=== PATIENT | female | born 1965 | race Caucasian/White ===

== ENCOUNTER 2019-02-09 02:33 | Inpatient (IN) | payer OTHER ==
[~2019-02-09] VITALS: Ht 170.2 cm; Wt 101.8 kg
[2019-02-09] VITALS (10 sets, daily range): BP systolic 115–134; BP diastolic 69–90
[2019-02-09 03:09] LABS: BASO # 0.1 x10^3/uL (0.0-0.2); BASO % 1 % (0-3); EOS # 0.1 x10^3/uL (0.0-0.7); EOS % 1 % (0-3); HEMATOCRIT 41.5 % (36.0-47.0); LYMPH # 2.6 x10^3/uL (1.0-4.8); LYMPH % 19 % (24-48); MEAN CORPUSCULAR HEMOGLOBIN 33 pg (25-35); MEAN CORPUSCULAR HGB CONC 34 g/dL (31-37); MEAN CORPUSCULAR VOLUME 97 fL (79-100); MONO # 0.9 x10^3/uL (0.0-1.1); MONO % 6 % (0-9); NEUT # 10.3 x10^3/uL (1.8-7.7); NEUT % 74 % (31-73); PLATELET COUNT 295 x10^3/uL (140-400); RED BLOOD COUNT 4.29 x10^6/uL (3.50-5.40); RED CELL DISTRIBUTION WIDTH 13.8 % (11.5-14.5)
[2019-02-09] MEDS ORDERED: KETOROLAC 15 MG/ML VIAL. IV ONE (03:15)
[2019-02-09] MEDS ORDERED: FAMOTIDINE 20 MG/2 ML VIAL IVP ONE (03:15)
[2019-02-09] MEDS ORDERED: IV NORMAL SALINE 1000ML BAG 1,000 ML IV ONE ×2 (03:15→04:15)
[2019-02-09] MEDS ORDERED: ONDANSETRON PF 4 MG/2 ML VIAL. IV ONE ×2 (03:15→04:15)
[2019-02-09 03:20] LABS: CALCIUM 9.2 mg/dL (8.5-10.1); CREATININE 0.9 mg/dL (0.6-1.0); GFR 65.8; POTASSIUM 4.1 mmol/L (3.5-5.1)
[2019-02-09 03:21] LABS: PROTHROMBIN TIME PATIENT 12.1 SEC (11.7-14.0)
[2019-02-09 03:26] LABS: ALBUMIN 3.7 g/dL (3.4-5.0); ALBUMIN/GLOBULIN RATIO 1.2 (1.0-1.7); MAGNESIUM 2.1 mg/dL (1.8-2.4); TOTAL BILIRUBIN 0.4 mg/dL (0.2-1.0); TOTAL PROTEIN 6.9 g/dL (6.4-8.2)
[2019-02-09] MEDS ORDERED: fentaNYL PF VIAL 100 MCG/2 ML VIAL IV ONE (03:30)
[2019-02-09 03:53] LABS: CREATINE KINASE 49 U/L (26-192)
--- NOTE | 2019-02-09 04:11 | PHYS DOC ---
Past Medical History Past Medical History: No Pertinent History Past Surgical History: , Hip Replacement, Hysterectomy Additional Past Surgical Histo: LEFT HIP, LAP BAND Additional Information: Nonsmoker Alcohol Use: Occasionally Drug Use: None Adult General Chief Complaint Chief Complaint: ABDOMINAL PAIN HPI HPI 53-year-old female presents with sudden right upper quadrant/epigastric pain with radiation to her shoulder and associated nausea and vomiting that started this evening. Patient reports she has been vomiting significantly since. Denies known sick contacts. Denies fever or chills. Patient denies trauma. Denies rash. Patient does have history of lap band was performed several years ago. Review of Systems Review of Systems Constitutional: Denies fever or chills Eyes: Denies redness or eye pain HENT: Denies nasal congestion or sore throat Respiratory: Denies cough or shortness of breath Cardiovascular: Denies chest pain or palpitations GI: Reports abdominal pain, nausea, and vomiting : Denies dysuria or hematuria Musculoskeletal: Reports right back pain and right shoulder pain Integument: Denies rash or skin lesions Neurologic: Denies headache, focal weakness or sensory changes Complete systems were reviewed and found to be within normal limits, except as documented in this note. Current Medications Current Medications Current Medications Medications (Trade) Dose Ordered Sig/Holly Start Time Stop Time Status Last Admin Dose Admin Famotidine (Pepcid Vial) 20 mg 1X ONCE 02/09/19 03:15 02/09/19 03:16 DC 02/09/19 03:12 20 MG Fentanyl Citrate (Fentanyl 2ml Vial) 50 mcg 1X ONCE 02/09/19 03:30 02/09/19 03:53 DC 02/09/19 03:32 50 MCG Ketorolac Tromethamine (Toradol 15mg Vial) 15 mg 1X ONCE 02/09/19 03:15 02/09/19 03:16 DC 02/09/19 03:12 15 MG Ondansetron HCl (Zofran) 4 mg 1X ONCE 02/09/19 03:15 02/09/19 03:16 DC 02/09/19 03:12 4 MG Sodium Chloride 1,000 ml @ 1,000 mls/hr 1X ONCE 02/09/19 03:15 02/09/19 04:14 DC 02/09/19 03:12 1,000 MLS/HR Allergies Allergies Allergies Coded Allergies Type Severity Reaction Last Updated Verified No Known Drug Allergies 02/09/19 No Physical Exam Physical Exam Constitutional: Well developed, well nourished, agitated due to pain, uncomfor table appearance HENT: Normocephalic, atraumatic, oropharynx moist Eyes: Conjunctiva normal, no discharge Neck: Normal range of motion, no tenderness, supple Cardiovascular: Heart rate normal, regular rhythm Lungs & Thorax: Bilateral breath sounds clear to auscultation, no wheezing Abdomen: Soft, right upper quadrant abdominal pain with palpation Skin: Warm, dry, no erythema, no rash Back: No tenderness, no CVA tenderness Extremities: No tenderness, ROM intact, no edema Neurologic: Alert and oriented X 3, normal motor function, normal sensory function, no focal deficits noted Psychologic: Affect agitated, judgement normal Current Patient Data Vital Signs Vital Signs Date Time Temp Pulse Resp B/P (MAP) Pulse Ox O2 Delivery O2 Flow Rate FiO2 02/09/19 03:32 22 99 Room Air 02/09/19 02:40 97.8 74 151/93 (112) 97.8 Lab Values Laboratory Tests Test 02/09/19 02:40 White Blood Count 14.0 x10^3/uL (4.0-11.0) H Red Blood Count 4.29 x10^6/uL (3.50-5.40) Hemoglobin 14.0 g/dL (12.0-15.5) Hematocrit 41.5 % (36.0-47.0) Mean Corpuscular Volume 97 fL (79-100) Mean Corpuscular Hemoglobin 33 pg (25-35) Mean Corpuscular Hemoglobin Concent 34 g/dL (31-37) Red Cell Distribution Width 13.8 % (11.5-14.5) Platelet Count 295 x10^3/uL (140-400) Neutrophils (%) (Auto) 74 % (31-73) H Lymphocytes (%) (Auto) 19 % (24-48) L Monocytes (%) (Auto) 6 % (0-9) Eosinophils (%) (Auto) 1 % (0-3) Basophils (%) (Auto) 1 % (0-3) Neutrophils # (Auto) 10.3 x10^3/uL (1.8-7.7) H Lymphocytes # (Auto) 2.6 x10^3/uL (1.0-4.8) Monocytes # (Auto) 0.9 x10^3/uL (0.0-1.1) Eosinophils # (Auto) 0.1 x10^3/uL (0.0-0.7) Basophils # (Auto) 0.1 x10^3/uL (0.0-0.2) Sodium Level 143 mmol/L (136-145) Potassium Level 4.1 mmol/L (3.5-5.1) Chloride Level 104 mmol/L (98-107) Carbon Dioxide Level 32 mmol/L (21-32) Anion Gap 7 (6-14) Blood Urea Nitrogen 12 mg/dL (7-20) Creatinine 0.9 mg/dL (0.6-1.0) Estimated GFR (Cockcroft-Gault) 65.8 BUN/Creatinine Ratio 13 (6-20) Glucose Level 119 mg/dL (70-99) H Lactic Acid Level 1.0 mmol/L (0.4-2.0) Calcium Level 9.2 mg/dL (8.5-10.1) Magnesium Level 2.1 mg/dL (1.8-2.4) Total Bilirubin 0.4 mg/dL (0.2-1.0) Aspartate Amino Transferase (AST) 17 U/L (15-37) Alanine Aminotransferase (ALT) 25 U/L (14-59) Alkaline Phosphatase 84 U/L (46-116) Creatine Kinase 49 U/L (26-192) Creatine Kinase MB (Mass) 0.5 ng/mL (0.0-3.6) Creatine Kinase MB Relative Index % (0-4) Troponin I Quantitative < 0.017 ng/mL (0.000-0.055) Total Protein 6.9 g/dL (6.4-8.2) Albumin 3.7 g/dL (3.4-5.0) Albumin/Globulin Ratio 1.2 (1.0-1.7) Lipase 89 U/L (73-393) Laboratory Tests 02/09/19 02:40 Laboratory Tests 02/09/19 02:40 EKG EKG @0317 NSR at 80bpm, NO ST elevation, wandering baseline noted, QRS 88ms, QT/QTc 404/470ms Radiology/Procedures Radiology/Procedures PROCEDURE: ABDOMEN LTD Abdominal ultrasound right upper quadrant: Reason for examination: Right upper quadrant pain. Evaluate for cholelithiasis. Pancreas is poorly visualized due to bowel gas. No abnormality seen at the inferior vena cava. The liver is enlarged at 19.5 cm and shows fatty infiltration without a focal lesion. Gallbladder shows cholelithiasis with positive Vance sign. Gallbladder appears enlarged at 11.3 cm. The gallbladder wall is thickened at 4.8 mm. Common bile duct is normal in caliber at 5.3 mm. Right kidney measures 10.8 x 5.1 x 4.7 cm in greatest dimension and shows normal cortical medullary differentiation with no mass or hydronephrosis. IMPRESSION: Enlarged liver with fatty infiltration. Enlarged gallbladder with cholelithiasis with positive Vance sign and gallbladder wall thickening consistent with cholecystitis. Electronically signed by: Nydia Palmer MD (02/09/2019 4:22 AM) [facility] Course & Med Decision Making Course & Med Decision Making Pertinent Labs and Imaging studies reviewed. (See chart for details) Patient presents with history of present illness and physical exam concerning for possible acute cholecystitis. Reports last PO 2129 last night. Patient was seen and tenderness to right upper quadrant. Pain/nausea addressed. IV fluid hydration given. Labs obtained and posted to chart. LFT/lipase within normal limits. WBC elevated. Lactic acid within normal limits. Ultrasound obtained with findings consistent for acute cholecystitis. Discussed case with Dr. Ricardo (Gen Surgery) who is in agreement with consultation and requests empiric antibiotics to be given. Zosyn initiated. Patient requiring admission for further evaluation and treatment. Discussed with Dr. Day (hospitalist) who is in agreement with admission. Discussed findings and plan with patient and family, who acknowledge understanding and agreement. Dragon Disclaimer Dragon Disclaimer This electronic medical record was generated, in whole or in part, using a voice recognition dictation system. Departure Departure Impression: Primary Impression: Cholecystitis Disposition: ADMITTED INPATIENT Admitting Physician: JANETTE (Shay) Condition: STABLE Referrals: NO PCP (PCP) GEORGE LOU DO Feb 09, 2019 04:11
[2019-02-09] MEDS ORDERED: MORPHINE SULFATE 10 MG/ML VIAL. IV ONE (04:15)
[2019-02-09] MEDS ORDERED: ONDANSETRON PF 4 MG/2 ML VIAL. IV PRN ×2 (04:15→08:30)
--- NOTE | 2019-02-09 04:25 | RAD ---
Abdominal ultrasound right upper quadrant: Reason for examination: Right upper quadrant pain. Evaluate for cholelithiasis. Pancreas is poorly visualized due to bowel gas. No abnormality seen at the inferior vena cava. The liver is enlarged at 19.5 cm and shows fatty infiltration without a focal lesion. Gallbladder shows cholelithiasis with positive Vacne sign. Gallbladder appears enlarged at 11.3 cm. The gallbladder wall is thickened at 4.8 mm. Common bile duct is normal in caliber at 5.3 mm. Right kidney measures 10.8 x 5.1 x 4.7 cm in greatest dimension and shows normal cortical medullary differentiation with no mass or hydronephrosis. IMPRESSION: Enlarged liver with fatty infiltration. Enlarged gallbladder with cholelithiasis with positive Vance sign and gallbladder wall thickening consistent with cholecystitis. Electronically signed by: Nydia Palmer MD (02/09/2019 4:22 AM) [facility]
[2019-02-09] MEDS ORDERED: PIPERACILLIN/TAZOBACTAM 3.375 GM in IV NORMAL SALINE 50ML 50 ML IV ONE ×2 (04:30→13:45)
[2019-02-09] MEDS: MORPHINE SULFATE 4 MG/ML VIAL. IV PRN ×3 (05:37→22:48)
--- NOTE | 2019-02-09 07:07 | EKG ---
[facility] [address] [place] [address] Test Date: 2019-02-09 Test Time: 03:17:53 Pat Name: BREANA BROWN Department: Room: 410 Gender: F [employer]: : 1965 Requested By: GEORGE LOU Order Number: [id number] Reading MD: Ishan Lara MD Measurements Intervals [place] Rate: 80 P: 20 WY: 170 QRS: 12 QRSD: 88 T: 38 QT: 404 QTc: 469 Interpretive Statements SINUS RHYTHM Electronically Signed On 02-09-2019 13:46:33 CDT by Ishan Lara MD
--- NOTE | 2019-02-09 08:07 | PDOC2 ---
CARLA BIRMINGHAM SERVICE PROVIDER 02/09/19 0807: CONSULT Date of Consult Date of Consult DATE: 02/09/19 TIME: 08:03 Reason for Consult Reason for Consult: cholecystitis Referring Physician Referring Physician: ER Identification/Chief Complaint Chief Complaint abdominal pain Source Source: Chart review, Patient History of Present Illness Reason for Visit: Acute onset upper abdominal pain with radiation to back. Associated nausea and emesis. Started after dinner last evening. No similar pain in past. Reports no diarrhea, some constipation(small stool yesterday). Pain medication alleviates pain somewhat. Past Medical History Past Medical History no pertinent hx Past Surgical History Past Surgical History: , Tubal Ligation, Hysterectomy, Other (lap band) Family History Family History: Other (noncontributory to current illness ) Social History No ALCOHOL: occassional Drugs: None Lives: Alone Current Medications Current Medications Current Medications Ondansetron HCl (Zofran) 4 mg 1X ONCE IV Last administered on 02/09/19at 03:12; Start 02/09/19 at 03:15; Stop 02/09/19 at 03:16; Status DC Famotidine (Pepcid Vial) 20 mg 1X ONCE IVP Last administered on 02/09/19at 03:12; Start 02/09/19 at 03:15; Stop 02/09/19 at 03:16; Status DC Ketorolac Tromethamine (Toradol 15mg Vial) 15 mg 1X ONCE IV Last administered on 02/09/19at 03:12; Start 02/09/19 at 03:15; Stop 02/09/19 at 03:16; Status DC Sodium Chloride 1,000 ml @ 1,000 mls/hr 1X ONCE IV Last administered on 02/09/19at 03:12; Start 02/09/19 at 03:15; Stop 02/09/19 at 04:14; Status DC Fentanyl Citrate (Fentanyl 2ml Vial) 50 mcg 1X ONCE IV Last administered on 02/09/19at 03:32; Start 02/09/19 at 03:30; Stop 02/09/19 at 03:53; Status DC Morphine Sulfate (Morphine Sulfate) 5 mg 1X ONCE IV Last administered on 02/09/19at 04:20; Start 02/09/19 at 04:15; Stop 02/09/19 at 04:16; Status DC Ondansetron HCl (Zofran) 4 mg 1X ONCE IV Last administered on 02/09/19at 04:20; Start 02/09/19 at 04:15; Stop 02/09/19 at 04:16; Status DC Ondansetron HCl (Zofran) 4 mg PRN Q8HRS PRN IV NAUSEA/VOMITING; Start 02/09/19 at 04:15; Stop 02/10/19 at 04:14 Morphine Sulfate (Morphine Sulfate) 4 mg PRN Q4HRS PRN IV PAIN Last administered on 02/09/19at 05:37; Start 02/09/19 at 04:15 Sodium Chloride 1,000 ml @ 125 mls/hr 1X ONCE IV Last administered on 02/09/19at 05:37; Start 02/09/19 at 04:15; Stop 02/09/19 at 12:14 Piperacillin Sod/ Tazobactam Sod 3.375 gm/Sodium Chloride 50 ml @ 100 mls/hr 1X ONCE IV Last administered on 02/09/19at 05:37; Start 02/09/19 at 04:30; Stop 02/09/19 at 04:59; Status DC Allergies Allergies: Coded Allergies: No Known Drug Allergies (Unverified , 02/09/19) ROS General: YES: Chills, Other (+ subjective fevers ) PSYCHOLOGICAL ROS: No: Anxiety, Depression Eyes: No Blurry vision, No Double vision HEENT: No: Heacaches, Sore Throat Hematological and Lymphatic: No: Bleeding Problems, Blood Clots Respiratory: YES: Shortness of breath; No: Cough Cardiovascular: yes Chest Pain; No Palpitations Gastrointestinal: Yes Other (see hpi) Genitourinary: No Dysuria, No Hematuria Musculoskeletal: No Joint Pain, No Muscle Pain Neurological: No Confusion, No Impaired Coord/balance Skin: No Pruritus, No Rash Physical Exam General: Alert, Oriented X3, Cooperative, No acute distress HEENT: PERRLA, Mucous membr. moist/pink Lungs: Clear to auscultation, Normal air movement Heart: Regular rate, Normal S1, Normal S2, No murmurs Abdomen: Soft, Other (ND, TTP across upper abdomen ) Extremities: No clubbing, No cyanosis Skin: No rashes, No breakdown Neuro: Normal gait, Normal speech Psych/Mental Status: Mental status NL, Mood NL MUSCULOSKELETAL: No deformity, No swelling Vitals VITALS Vital Signs Date Time Temp Pulse Resp B/P (MAP) Pulse Ox O2 Delivery O2 Flow Rate FiO2 02/09/19 06:19 Room Air 02/09/19 05:37 18 02/09/19 05:15 97.0 87 125/88 (100) 92 97.0 Labs Labs Laboratory Tests Test 02/09/19 02:40 White Blood Count 14.0 x10^3/uL (4.0-11.0) Red Blood Count 4.29 x10^6/uL (3.50-5.40) Hemoglobin 14.0 g/dL (12.0-15.5) Hematocrit 41.5 % (36.0-47.0) Mean Corpuscular Volume 97 fL (79-100) Mean Corpuscular Hemoglobin 33 pg (25-35) Mean Corpuscular Hemoglobin Concent 34 g/dL (31-37) Red Cell Distribution Width 13.8 % (11.5-14.5) Platelet Count 295 x10^3/uL (140-400) Neutrophils (%) (Auto) 74 % (31-73) Lymphocytes (%) (Auto) 19 % (24-48) Monocytes (%) (Auto) 6 % (0-9) Eosinophils (%) (Auto) 1 % (0-3) Basophils (%) (Auto) 1 % (0-3) Neutrophils # (Auto) 10.3 x10^3/uL (1.8-7.7) Lymphocytes # (Auto) 2.6 x10^3/uL (1.0-4.8) Monocytes # (Auto) 0.9 x10^3/uL (0.0-1.1) Eosinophils # (Auto) 0.1 x10^3/uL (0.0-0.7) Basophils # (Auto) 0.1 x10^3/uL (0.0-0.2) Prothrombin Time 12.1 SEC (11.7-14.0) Prothromb Time International Ratio 0.9 (0.8-1.1) Activated Partial Thromboplast Time 30 SEC (24-38) Sodium Level 143 mmol/L (136-145) Potassium Level 4.1 mmol/L (3.5-5.1) Chloride Level 104 mmol/L (98-107) Carbon Dioxide Level 32 mmol/L (21-32) Anion Gap 7 (6-14) Blood Urea Nitrogen 12 mg/dL (7-20) Creatinine 0.9 mg/dL (0.6-1.0) Estimated GFR (Cockcroft-Gault) 65.8 BUN/Creatinine Ratio 13 (6-20) Glucose Level 119 mg/dL (70-99) Lactic Acid Level 1.0 mmol/L (0.4-2.0) Calcium Level 9.2 mg/dL (8.5-10.1) Magnesium Level 2.1 mg/dL (1.8-2.4) Total Bilirubin 0.4 mg/dL (0.2-1.0) Aspartate Amino Transf (AST/SGOT) 17 U/L (15-37) Alanine Aminotransferase (ALT/SGPT) 25 U/L (14-59) Alkaline Phosphatase 84 U/L (46-116) Creatine Kinase 49 U/L (26-192) Creatine Kinase MB (Mass) 0.5 ng/mL (0.0-3.6) Creatine Kinase MB Relative Index % (0-4) Troponin I Quantitative < 0.017 ng/mL (0.000-0.055) Total Protein 6.9 g/dL (6.4-8.2) Albumin 3.7 g/dL (3.4-5.0) Albumin/Globulin Ratio 1.2 (1.0-1.7) Lipase 89 U/L (73-393) Laboratory Tests Test 02/09/19 02:40 White Blood Count 14.0 x10^3/uL (4.0-11.0) Red Blood Count 4.29 x10^6/uL (3.50-5.40) Hemoglobin 14.0 g/dL (12.0-15.5) Hematocrit 41.5 % (36.0-47.0) Mean Corpuscular Volume 97 fL (79-100) Mean Corpuscular Hemoglobin 33 pg (25-35) Mean Corpuscular Hemoglobin Concent 34 g/dL (31-37) Red Cell Distribution Width 13.8 % (11.5-14.5) Platelet Count 295 x10^3/uL (140-400) Neutrophils (%) (Auto) 74 % (31-73) Lymphocytes (%) (Auto) 19 % (24-48) Monocytes (%) (Auto) 6 % (0-9) Eosinophils (%) (Auto) 1 % (0-3) Basophils (%) (Auto) 1 % (0-3) Neutrophils # (Auto) 10.3 x10^3/uL (1.8-7.7) Lymphocytes # (Auto) 2.6 x10^3/uL (1.0-4.8) Monocytes # (Auto) 0.9 x10^3/uL (0.0-1.1) Eosinophils # (Auto) 0.1 x10^3/uL (0.0-0.7) Basophils # (Auto) 0.1 x10^3/uL (0.0-0.2) Prothrombin Time 12.1 SEC (11.7-14.0) Prothromb Time International Ratio 0.9 (0.8-1.1) Activated Partial Thromboplast Time 30 SEC (24-38) Sodium Level 143 mmol/L (136-145) Potassium Level 4.1 mmol/L (3.5-5.1) Chloride Level 104 mmol/L (98-107) Carbon Dioxide Level 32 mmol/L (21-32) Anion Gap 7 (6-14) Blood Urea Nitrogen 12 mg/dL (7-20) Creatinine 0.9 mg/dL (0.6-1.0) Estimated GFR (Cockcroft-Gault) 65.8 BUN/Creatinine Ratio 13 (6-20) Glucose Level 119 mg/dL (70-99) Lactic Acid Level 1.0 mmol/L (0.4-2.0) Calcium Level 9.2 mg/dL (8.5-10.1) Magnesium Level 2.1 mg/dL (1.8-2.4) Total Bilirubin 0.4 mg/dL (0.2-1.0) Aspartate Amino Transf (AST/SGOT) 17 U/L (15-37) Alanine Aminotransferase (ALT/SGPT) 25 U/L (14-59) Alkaline Phosphatase 84 U/L (46-116) Creatine Kinase 49 U/L (26-192) Creatine Kinase MB (Mass) 0.5 ng/mL (0.0-3.6) Creatine Kinase MB Relative Index % (0-4) Troponin I Quantitative < 0.017 ng/mL (0.000-0.055) Total Protein 6.9 g/dL (6.4-8.2) Albumin 3.7 g/dL (3.4-5.0) Albumin/Globulin Ratio 1.2 (1.0-1.7) Lipase 89 U/L (73-393) Assessment/Plan Assessment/Plan cholecystitis obesity plan for OR today d/w pt BELINDA MONZON MD 02/09/19 1337: CONSULT Assessment/Plan Assessment/Plan Pt seen and examined by myself; 53 year old female developed RUQ pain starting yesterday, rad to the back, persistent and severe. PMH/PSH/ROS/SH as above; exam: alert, oriented, no neck masses, no scleral icterus, lungs clear, heart RR and R, abdomen obese, tender with palpation in RUQ, lap band port present, ext neg for edema; Xrays and labs reviewed; A/P) Acute cholecystitis, recommend lap jack. The details and risks of surgery were discussed with the patient. She understands and would like to proceed. CARLA BIRMINGHAM APRN Feb 09, 2019 08:07 BELINDA MONZON MD Feb 09, 2019 13:37
[2019-02-09] MEDS ORDERED: IV RINGERS,LACTATED 1000ML 1,000 ML IV SCH (08:29)
[2019-02-09] MEDS ORDERED: HYDROmorphone 2 MG/ML VIAL IV PRN (08:30)
[2019-02-09] MEDS ORDERED: PROCHLORPERAZINE 10 MG/2 ML VIAL. IV PRN (08:30)
[2019-02-09] MEDS ORDERED: fentaNYL PF VIAL 100 MCG/2 ML VIAL IV PRN (08:30)
[2019-02-09] MEDS ORDERED: MORPHINE SULFATE 2 MG/ML VIAL. IV PRN (08:30)
[2019-02-09] MEDS ORDERED: DEXAMETHASONE SOD PHOS 4 MG/ML VIAL ONE (09:18)
[2019-02-09] MEDS ORDERED: ONDANSETRON PF 4 MG/2 ML VIAL. ONE (09:18)
[2019-02-09] MEDS ORDERED: fentaNYL PF VIAL 100 MCG/2 ML VIAL ONE (09:18)
[2019-02-09] MEDS ORDERED: PROPOFOL 20 ML IV ONE (09:18)
[2019-02-09] MEDS ORDERED: MIDAZOLAM HCL/PF 2 MG/2 ML VIAL. ONE (09:18)
[2019-02-09] MEDS ORDERED: ROCURONIUM 50 MG/5 ML VIAL. ONE (09:18)
[2019-02-09] MEDS ORDERED: LIDOCAINE 2% PF 5 ML VIAL. ONE (09:18)
--- NOTE | 2019-02-09 10:50 | NUR ---
SS following for discharge planning. SS reviewed pt chart. Pt is from home and is currently on room air. No discharge needs noted at this time. SS will continue to follow for discharge planning.
--- NOTE | 2019-02-09 11:06 | PDOC1 ---
History and Physical Date of Admission Date of Admission DATE: 02/09/19 TIME: 11:06 Identification/Chief Complaint Chief Complaint seen in er , 53-year-old female presents with sudden right upper quadrant/epigastric pain with radiation to her shoulder and associated nausea and vomiting that started this evening. Patient reports she has been vomiting significantly since. Denies known sick contacts. Denies fever or chills. Patient denies trauma. Denies rash. Patient does have history of lap band was performed several years ago. Past Medical History Past Medical History Past Medical History Past Medical History: No Pertinent History Past Surgical History: , Hip Replacement, Hysterectomy Additional Past Surgical Histo: LEFT HIP, LAP BAND Additional Information: Nonsmoker Alcohol Use: Occasionally Drug Use: None family hx obesity Past Surgical History Past Surgical History: , Tubal Ligation, Hysterectomy, Other (lap band) Family History Family History: High Cholestrol, Other (noncontributory to current illness ) Social History Smoke: No ALCOHOL: none Drugs: None Current Medications Current Medications Current Medications Ondansetron HCl (Zofran) 4 mg 1X ONCE IV Last administered on 02/09/19at 03:12; Start 02/09/19 at 03:15; Stop 02/09/19 at 03:16; Status DC Famotidine (Pepcid Vial) 20 mg 1X ONCE IVP Last administered on 02/09/19at 03:12; Start 02/09/19 at 03:15; Stop 02/09/19 at 03:16; Status DC Ketorolac Tromethamine (Toradol 15mg Vial) 15 mg 1X ONCE IV Last administered on 02/09/19at 03:12; Start 02/09/19 at 03:15; Stop 02/09/19 at 03:16; Status DC Sodium Chloride 1,000 ml @ 1,000 mls/hr 1X ONCE IV Last administered on 02/09/19at 03:12; Start 02/09/19 at 03:15; Stop 02/09/19 at 04:14; Status DC Fentanyl Citrate (Fentanyl 2ml Vial) 50 mcg 1X ONCE IV Last administered on 02/09/19at 03:32; Start 02/09/19 at 03:30; Stop 02/09/19 at 03:53; Status DC Morphine Sulfate (Morphine Sulfate) 5 mg 1X ONCE IV Last administered on at 04:20; Start 02/09/19 at 04:15; Stop 02/09/19 at 04:16; Status DC Ondansetron HCl (Zofran) 4 mg 1X ONCE IV Last administered on 02/09/19at 04:20; Start 02/09/19 at 04:15; Stop 02/09/19 at 04:16; Status DC Ondansetron HCl (Zofran) 4 mg PRN Q8HRS PRN IV NAUSEA/VOMITING; Start 02/09/19 at 04:15; Stop 02/10/19 at 04:14 Morphine Sulfate (Morphine Sulfate) 4 mg PRN Q4HRS PRN IV PAIN Last administered on 02/09/19at 05:37; Start 02/09/19 at 04:15 Sodium Chloride 1,000 ml @ 125 mls/hr 1X ONCE IV Last administered on 02/09/19at 05:37; Start 02/09/19 at 04:15; Stop 02/09/19 at 12:14 Piperacillin Sod/ Tazobactam Sod 3.375 gm/Sodium Chloride 50 ml @ 100 mls/hr 1X ONCE IV Last administered on 02/09/19at 05:37; Start 02/09/19 at 04:30; Stop 02/09/19 at 04:59; Status DC Ondansetron HCl (Zofran) 4 mg PRN Q6HRS PRN IV NAUSEA/VOMITING; Start 02/09/19 at 08:30; Stop 02/10/19 at 08:29 Fentanyl Citrate (Fentanyl 2ml Vial) 25 mcg PRN Q5MIN PRN IV MILD PAIN 1-3; Start 02/09/19 at 08:30; Stop 02/10/19 at 08:29 Fentanyl Citrate (Fentanyl 2ml Vial) 50 mcg PRN Q5MIN PRN IV MODERATE TO SEVERE PAIN; Start 02/09/19 at 08:30; Stop 02/10/19 at 08:29 Morphine Sulfate (Morphine Sulfate) 1 mg PRN Q10MIN PRN IV SEVERE PAIN 7-10; Start 02/09/19 at 08:30; Stop 02/10/19 at 08:29 Ringer's Solution 1,000 ml @ 30 mls/hr Q24H IV ; Start 02/09/19 at 08:29; Stop 02/09/19 at 20:28 Hydromorphone HCl (Dilaudid) 0.5 mg PRN Q10MIN PRN IV SEV PAIN, Second choice; Start 02/09/19 at 08:30; Stop 02/10/19 at 08:29 Prochlorperazine Edisylate (Compazine) 5 mg PACU PRN PRN IV NAUSEA, MRX1; Start 02/09/19 at 08:30; Stop 02/10/19 at 08:29 Ondansetron HCl (Zofran) 4 mg STK-MED ONCE .ROUTE ; Start 02/09/19 at 09:18; Stop 02/09/19 at 09:18; Status DC Propofol 20 ml @ As Directed STK-MED ONCE IV ; Start 02/09/19 at 09:18; Stop 02/09/19 at 09:18; Status DC Lidocaine HCl (Lidocaine Pf 2% Vial) 5 ml STK-MED ONCE .ROUTE ; Start 02/09/19 at 09:18; Stop 02/09/19 at 09:18; Status DC Dexamethasone Sodium Phosphate (Decadron) 4 mg STK-MED ONCE .ROUTE ; Start 02/09/19 at 09:18; Stop 02/09/19 at 09:18; Status DC Midazolam HCl (Versed) 2 mg STK-MED ONCE .ROUTE ; Start 02/09/19 at 09:18; Stop 02/09/19 at 09:18; Status DC Fentanyl Citrate (Fentanyl 2ml Vial) 100 mcg STK-MED ONCE .ROUTE ; Start 02/09/19 at 09:18; Stop 02/09/19 at 09:18; Status DC Rocuronium [place] (Zemuron) 50 mg STK-MED ONCE .ROUTE ; Start 02/09/19 at 09:18; Stop 02/09/19 at 09:18; Status DC Allergies Allergies: Coded Allergies: No Known Drug Allergies (Unverified , 02/09/19) ROS Review of System Review of Systems Review of Systems Constitutional: Denies fever or chills Eyes: Denies redness or eye pain HENT: Denies nasal congestion or sore throat Respiratory: Denies cough or shortness of breath Cardiovascular: Denies chest pain or palpitations GI: Reports abdominal pain, nausea, and vomiting : Denies dysuria or hematuria Musculoskeletal: Reports right back pain and right shoulder pain Integument: Denies rash or skin lesions Neurologic: Denies headache, focal weakness or sensory changes 14 pt systems were reviewed and found to be within normal limits, except as documented Physical Exam Physical Exam Physical Exam Physical Exam Constitutional: Well developed, well nourished, agitated due to pain, uncomf ortable appearance HENT: Normocephalic, atraumatic, oropharynx moist Eyes: Conjunctiva normal, no discharge Neck: Normal range of motion, no tenderness, supple Cardiovascular: Heart rate normal, regular rhythm Lungs & Thorax: Bilateral breath sounds clear to auscultation, no wheezing Abdomen: Soft, right upper quadrant abdominal pain with palpation Skin: Warm, dry, no erythema, no rash Back: No tenderness, no CVA tenderness Extremities: No tenderness, ROM intact, no edema Neurologic: Alert and oriented X 3, normal motor function, normal sensory function, no focal deficits noted Psychologic: Affect agitated, judgement normal Breasts: Not examined Rectal Exam: not examined Extremities: No edema Neuro: Normal speech, Sensation intact, Cranial nerves 3-12 NL Psych/Mental Status: Mental status NL Vitals Vitals Vital Signs Date Time Temp Pulse Resp B/P (MAP) Pulse Ox O2 Delivery O2 Flow Rate FiO2 02/09/19 09:34 97.4 73 20 127/70 97 Room Air 97.4 Labs Labs Laboratory Tests Test 02/09/19 02:40 White Blood Count 14.0 x10^3/uL (4.0-11.0) Red Blood Count 4.29 x10^6/uL (3.50-5.40) Hemoglobin 14.0 g/dL (12.0-15.5) Hematocrit 41.5 % (36.0-47.0) Mean Corpuscular Volume 97 fL (79-100) Mean Corpuscular Hemoglobin 33 pg (25-35) Mean Corpuscular Hemoglobin Concent 34 g/dL (31-37) Red Cell Distribution Width 13.8 % (11.5-14.5) Platelet Count 295 x10^3/uL (140-400) Neutrophils (%) (Auto) 74 % (31-73) Lymphocytes (%) (Auto) 19 % (24-48) Monocytes (%) (Auto) 6 % (0-9) Eosinophils (%) (Auto) 1 % (0-3) Basophils (%) (Auto) 1 % (0-3) Neutrophils # (Auto) 10.3 x10^3/uL (1.8-7.7) Lymphocytes # (Auto) 2.6 x10^3/uL (1.0-4.8) Monocytes # (Auto) 0.9 x10^3/uL (0.0-1.1) Eosinophils # (Auto) 0.1 x10^3/uL (0.0-0.7) Basophils # (Auto) 0.1 x10^3/uL (0.0-0.2) Prothrombin Time 12.1 SEC (11.7-14.0) Prothromb Time International Ratio 0.9 (0.8-1.1) Activated Partial Thromboplast Time 30 SEC (24-38) Sodium Level 143 mmol/L (136-145) Potassium Level 4.1 mmol/L (3.5-5.1) Chloride Level 104 mmol/L (98-107) Carbon Dioxide Level 32 mmol/L (21-32) Anion Gap 7 (6-14) Blood Urea Nitrogen 12 mg/dL (7-20) Creatinine 0.9 mg/dL (0.6-1.0) Estimated GFR (Cockcroft-Gault) 65.8 BUN/Creatinine Ratio 13 (6-20) Glucose Level 119 mg/dL (70-99) Lactic Acid Level 1.0 mmol/L (0.4-2.0) Calcium Level 9.2 mg/dL (8.5-10.1) Magnesium Level 2.1 mg/dL (1.8-2.4) Total Bilirubin 0.4 mg/dL (0.2-1.0) Aspartate Amino Transf (AST/SGOT) 17 U/L (15-37) Alanine Aminotransferase (ALT/SGPT) 25 U/L (14-59) Alkaline Phosphatase 84 U/L (46-116) Creatine Kinase 49 U/L (26-192) Creatine Kinase MB (Mass) 0.5 ng/mL (0.0-3.6) Creatine Kinase MB Relative Index % (0-4) Troponin I Quantitative < 0.017 ng/mL (0.000-0.055) Total Protein 6.9 g/dL (6.4-8.2) Albumin 3.7 g/dL (3.4-5.0) Albumin/Globulin Ratio 1.2 (1.0-1.7) Lipase 89 U/L (73-393) Laboratory Tests Test 02/09/19 02:40 White Blood Count 14.0 x10^3/uL (4.0-11.0) Red Blood Count 4.29 x10^6/uL (3.50-5.40) Hemoglobin 14.0 g/dL (12.0-15.5) Hematocrit 41.5 % (36.0-47.0) Mean Corpuscular Volume 97 fL (79-100) Mean Corpuscular Hemoglobin 33 pg (25-35) Mean Corpuscular Hemoglobin Concent 34 g/dL (31-37) Red Cell Distribution Width 13.8 % (11.5-14.5) Platelet Count 295 x10^3/uL (140-400) Neutrophils (%) (Auto) 74 % (31-73) Lymphocytes (%) (Auto) 19 % (24-48) Monocytes (%) (Auto) 6 % (0-9) Eosinophils (%) (Auto) 1 % (0-3) Basophils (%) (Auto) 1 % (0-3) Neutrophils # (Auto) 10.3 x10^3/uL (1.8-7.7) Lymphocytes # (Auto) 2.6 x10^3/uL (1.0-4.8) Monocytes # (Auto) 0.9 x10^3/uL (0.0-1.1) Eosinophils # (Auto) 0.1 x10^3/uL (0.0-0.7) Basophils # (Auto) 0.1 x10^3/uL (0.0-0.2) Prothrombin Time 12.1 SEC (11.7-14.0) Prothromb Time International Ratio 0.9 (0.8-1.1) Activated Partial Thromboplast Time 30 SEC (24-38) Sodium Level 143 mmol/L (136-145) Potassium Level 4.1 mmol/L (3.5-5.1) Chloride Level 104 mmol/L (98-107) Carbon Dioxide Level 32 mmol/L (21-32) Anion Gap 7 (6-14) Blood Urea Nitrogen 12 mg/dL (7-20) Creatinine 0.9 mg/dL (0.6-1.0) Estimated GFR (Cockcroft-Gault) 65.8 BUN/Creatinine Ratio 13 (6-20) Glucose Level 119 mg/dL (70-99) Lactic Acid Level 1.0 mmol/L (0.4-2.0) Calcium Level 9.2 mg/dL (8.5-10.1) Magnesium Level 2.1 mg/dL (1.8-2.4) Total Bilirubin 0.4 mg/dL (0.2-1.0) Aspartate Amino Transf (AST/SGOT) 17 U/L (15-37) Alanine Aminotransferase (ALT/SGPT) 25 U/L (14-59) Alkaline Phosphatase 84 U/L (46-116) Creatine Kinase 49 U/L (26-192) Creatine Kinase MB (Mass) 0.5 ng/mL (0.0-3.6) Creatine Kinase MB Relative Index % (0-4) Troponin I Quantitative < 0.017 ng/mL (0.000-0.055) Total Protein 6.9 g/dL (6.4-8.2) Albumin 3.7 g/dL (3.4-5.0) Albumin/Globulin Ratio 1.2 (1.0-1.7) Lipase 89 U/L (73-393) Images Images Signed PATIENT: BREANA BROWN ACCOUNT: [id number] : 1965 LOCATION: ER AGE: 53 SEX: F EXAM STATUS: REG ER ORD. PHYSICIAN: GEORGE LOU DO REASON: RUQ pain eval for cholelithiasis PROCEDURE: ABDOMEN LTD Abdominal ultrasound right upper quadrant: Reason for examination: Right upper quadrant pain. Evaluate for cholelithiasis. Pancreas is poorly visualized due to bowel gas. No abnormality seen at the inferior vena cava. The liver is enlarged at 19.5 cm and shows fatty infiltration without a focal lesion. Gallbladder shows cholelithiasis with positive Vance sign. Gallbladder appears enlarged at 11.3 cm. The gallbladder wall is thickened at 4.8 mm. Common bile duct is normal in caliber at 5.3 mm. Right kidney measures 10.8 x 5.1 x 4.7 cm in greatest dimension and shows normal cortical medullary differentiation with no mass or hydronephrosis. IMPRESSION: Enlarged liver with fatty infiltration. Enlarged gallbladder with cholelithiasis with positive Vance sign and gallbladder wall thickening consistent with cholecystitis. Electronically signed by: Nydia Palmer MD (02/09/2019 4:22 AM) [facility] VTE Prophylaxis Ordered VTE Prophylaxis Devices: Yes VTE Pharmacological Prophylaxi: Yes Assessment/Plan Assessment/Plan IMPRESSION: Enlarged liver with fatty infiltration. Enlarged gallbladder with cholelithiasis with positive Vance sign and gallbladder wall thickening consistent with acute cholecystitis. morbid obesity plan admit surgery consult npo iv fluid support iv protonix dvt prophylaxis 58 min pt exam, chart review, > 50% of time spent with exam, chart review, pt care coordination KATELYN CODY MD Feb 09, 2019 11:06
[2019-02-09] MEDS ORDERED: SURGICEL HEMOSTAT 4X8 EACH. ONE (13:05)
[2019-02-09] MEDS ORDERED: IOHEXOL 300 MG/ML 50 ML VIAL. ONE (13:05)
[2019-02-09] MEDS ORDERED: BUPIVACAINE MPF 0.5% 30 ML VIAL. ONE (13:05)
[2019-02-09] MEDS ORDERED: PIPERACILLIN/TAZOBACTAM 3.375 GM in IV DEXTROSE 5% 50 ML IV ONE (13:45)
[2019-02-09] MEDS ORDERED: NEOSTIGMINE METHYLSULFATE 5 MG/5 ML SYRINGE. ONE (14:15)
[2019-02-09] MEDS ORDERED: GLYCOPYRROLATE 1 MG/5 ML VIAL. ONE (14:15)
--- NOTE | 2019-02-09 14:20 | RAD ---
Examination: CHOLANGIOGRAM INTRAOPERATIVE History: Cholangiogram Comparison/Correlation: None Findings: A total of 2 images were obtained as part of intraoperative cholangiogram. Fluoroscopy was utilized for 0.18 minutes. Cholecystectomy is noted. Cystic duct is unremarkable. Contrast opacifies common bile duct. No stricture or suspicious filling defect identified. No intrahepatic biliary dilatation. No extravasation of contrast. Impression: Cholecystectomy. No acute process. Electronically signed by: Gabriele Marr MD (02/09/2019 2:17 PM) [facility]
[2019-02-09] MEDS ORDERED: SEVOFLURANE 61 TO 120 MINUTES. IH ONE (14:24)
--- NOTE | 2019-02-09 14:48 | PDOC4 ---
Operative Note Operative Note Operative Note: Preoperative Diagnosis: Acute cholecystitis Postoperative Diagnosis: Same Procedure: Laparoscopic cholecystectomy with intraoperative cholangiogram Surgeons: Davion Biology Internship: Myles SOLIS Anesthesia: Gen. Estimated Blood Loss: 10 mL Specimen: Gallbladder to pathology Drains: None Complications: None Indications: The patient is a 53-year-old female reported to the hospital with abdominal pain. Her evaluation is consistent with acute cholecystitis. Surgical treatment was offered by means of a laparoscopic cholecystectomy. The risks of surgery were discussed which include bleeding, infection, bile duct injury, bile leak, pain, the potential for additional surgeries or procedures. The patient understands and would like to proceed. Description: The patient was taken to the operating room and laid supine on the operating table. General anesthesia was performed. The abdomen was prepped with ChloraPrep and draped in a standard surgical fashion. A small infraumbilical incision was made with a scalpel. The Veress needle was then ins erted and a pneumoperitoneum was then created. A 5 mm trocar was then inserted and the laparoscope was introduced. In the upper midabdomen an 11 mm trocar was inserted and in the right upper quadrant two 5 mm trochars were inserted. The gallbladder appeared distended and inflamed consistent with acute cholecystitis. Approximately 80 mL of bilious fluid was aspirated providing gallbladder decompression. The gallbladder was retracted cephalad. The cystic duct was dissected free from surrounding tissues. One clip was placed on the duct near the gallbladder junction. An opening was made in the duct and a cholangiocatheter placed within and secured with a clip. Using contrast dye and fluoroscopy an intraoperative cholangiogram was performed that appeared unremarkable. The clip and catheter were then withdrawn. Three clips were placed on the cystic duct and it was divided. The cystic artery was then identified, dissected free, doubly clipped and divided as well. The gallbladder was then mobilized away from the liver with cautery. A Surgicel pack was placed on the gallbladder fossa to assist with any oozing. The gallbladder was then placed in an endoscopic bag and extracted at the superior trocar site. The fascia there was closed with an 0-PDS suture. All blood and irrigation fluid was suctioned and hemostasis was good. The remaining ports were removed and the pneumoperitoneum was relieved. The skin incisions were injected with half percent Marcaine with epinephrine, and all were closed using 4-0 Monocryl suture. Steri-Strips and dressings were then applied. The patient tolerated the procedure well and was sent to the recovery room in stable condition. At the end of the case all counts were correct. BELINDA MONZON MD Feb 09, 2019 14:48
[2019-02-09] MEDS ORDERED: oxyCODONE/APAP 5/325 1 TAB TABLET PO PRN ×2 (15:00)
[2019-02-09] MEDS: fentaNYL PF VIAL 100 MCG/2 ML VIAL IV PRN ×2 (15:39→15:52)
[2019-02-09 18:40] LABS: BILIRUBIN,URINE NEGATIVE (NEG); CLARITY,URINE CLEAR; COLOR,URINE YELLOW; NITRITE,URINE NEGATIVE (NEG); PH,URINE 7.5; PROTEIN,URINE NEGATIVE (NEG-TRACE)
[2019-02-09 18:49] LABS: SQUAMOUS EPITHELIAL CELL,UR FEW /LPF
[2019-02-09 18:53] LABS: BACTERIA,URINE 0 /HPF (0-FEW); RBC,URINE 0 /HPF (0-2); WBC,URINE OCC /HPF (0-4)
[2019-02-09] MEDS ORDERED: BENZOCAINE/MENTHOL LOZENGE. PO PRN (20:15)
[2019-02-09] MEDS ORDERED: ENOXAPARIN 40 MG/0.4 ML SYRINGE. SQ SCH (21:00)
[2019-02-10 03:00] VITALS: BP 106/78
[2019-02-10] MEDS: oxyCODONE/APAP 5/325 1 TAB TABLET PO PRN ×2 (03:14→07:41)
[2019-02-10 07:00] VITALS: BP 123/82
[2019-02-10] MEDS ORDERED: PANTOPRAZOLE IV PUSH 40 MG VIAL. IVP SCH (07:30)
[2019-02-10 08:09] LABS: BASO % 0 % (0-3); EOS % 0 % (0-3); HEMATOCRIT 39.1 % (36.0-47.0); LYMPH # 1.8 x10^3/uL (1.0-4.8); LYMPH % 15 % (24-48); MEAN CORPUSCULAR HEMOGLOBIN 32 pg (25-35); MEAN CORPUSCULAR HGB CONC 33 g/dL (31-37); MEAN CORPUSCULAR VOLUME 97 fL (79-100); MONO # 0.6 x10^3/uL (0.0-1.1); MONO % 5 % (0-9); NEUT # 9.5 x10^3/uL (1.8-7.7); NEUT % 79 % (31-73); PLATELET COUNT 250 x10^3/uL (140-400); RED BLOOD COUNT 4.04 x10^6/uL (3.50-5.40); RED CELL DISTRIBUTION WIDTH 13.6 % (11.5-14.5); WHITE BLOOD COUNT 12.1 x10^3/uL (4.0-11.0)
[2019-02-10 08:30] LABS: ALBUMIN 2.9 g/dL (3.4-5.0); ALBUMIN/GLOBULIN RATIO 0.9 (1.0-1.7); CALCIUM 8.4 mg/dL (8.5-10.1); CREATININE 0.8 mg/dL (0.6-1.0); GFR 75.3; POTASSIUM 4.2 mmol/L (3.5-5.1); TOTAL BILIRUBIN 0.5 mg/dL (0.2-1.0); TOTAL PROTEIN 6.2 g/dL (6.4-8.2)
--- NOTE | 2019-02-10 09:40 | PDOC ---
CARLA BIRMINGHAM ACLS NURSE 02/10/19 0940: SURGICAL PROGRESS NOTE Subjective tolerating diet ambulating to BR pain managed Vital Signs Vital Signs Date Time Temp Pulse Resp B/P (MAP) Pulse Ox O2 Delivery O2 Flow Rate FiO2 02/10/19 08:36 94 Room Air 02/10/19 07:00 98.4 65 16 123/82 (96) 98.4 02/09/19 18:04 2.0 I&O Intake and Output 02/10/19 07:00 Intake Total 1870 ml Output Total 410 ml Balance 1460 ml Intake Oral 120 ml IV Total 1750 ml Output Urine Total 400 ml Estimated Blood Loss 10 ml # Voids 2 General: Alert, Oriented X3, Cooperative, No acute distress Abdomen: Soft, Other (incisional TTP, lap dressings dry) Labs Laboratory Tests Test 02/09/19 02:40 02/09/19 18:25 02/10/19 06:40 White Blood Count 14.0 x10^3/uL (4.0-11.0) 12.1 x10^3/uL (4.0-11.0) Red Blood Count 4.29 x10^6/uL (3.50-5.40) 4.04 x10^6/uL (3.50-5.40) Hemoglobin 14.0 g/dL (12.0-15.5) 13.0 g/dL (12.0-15.5) Hematocrit 41.5 % (36.0-47.0) 39.1 % (36.0-47.0) Mean Corpuscular Volume 97 fL (79-100) 97 fL (79-100) Mean Corpuscular Hemoglobin 33 pg (25-35) 32 pg (25-35) Mean Corpuscular Hemoglobin Concent 34 g/dL (31-37) 33 g/dL (31-37) Red Cell Distribution Width 13.8 % (11.5-14.5) 13.6 % (11.5-14.5) Platelet Count 295 x10^3/uL (140-400) 250 x10^3/uL (140-400) Neutrophils (%) (Auto) 74 % (31-73) 79 % (31-73) Lymphocytes (%) (Auto) 19 % (24-48) 15 % (24-48) Monocytes (%) (Auto) 6 % (0-9) 5 % (0-9) Eosinophils (%) (Auto) 1 % (0-3) 0 % (0-3) Basophils (%) (Auto) 1 % (0-3) 0 % (0-3) Neutrophils # (Auto) 10.3 x10^3/uL (1.8-7.7) 9.5 x10^3/uL (1.8-7.7) Lymphocytes # (Auto) 2.6 x10^3/uL (1.0-4.8) 1.8 x10^3/uL (1.0-4.8) Monocytes # (Auto) 0.9 x10^3/uL (0.0-1.1) 0.6 x10^3/uL (0.0-1.1) Eosinophils # (Auto) 0.1 x10^3/uL (0.0-0.7) 0.0 x10^3/uL (0.0-0.7) Basophils # (Auto) 0.1 x10^3/uL (0.0-0.2) 0.0 x10^3/uL (0.0-0.2) Prothrombin Time 12.1 SEC (11.7-14.0) Prothromb Time International Ratio 0.9 (0.8-1.1) Activated Partial Thromboplast Time 30 SEC (24-38) Sodium Level 143 mmol/L (136-145) 140 mmol/L (136-145) Potassium Level 4.1 mmol/L (3.5-5.1) 4.2 mmol/L (3.5-5.1) Chloride Level 104 mmol/L (98-107) 106 mmol/L (98-107) Carbon Dioxide Level 32 mmol/L (21-32) 28 mmol/L (21-32) Anion Gap 7 (6-14) 6 (6-14) Blood Urea Nitrogen 12 mg/dL (7-20) 8 mg/dL (7-20) Creatinine 0.9 mg/dL (0.6-1.0) 0.8 mg/dL (0.6-1.0) Estimated GFR (Cockcroft-Gault) 65.8 75.3 BUN/Creatinine Ratio 13 (6-20) 10 (6-20) Glucose Level 119 mg/dL (70-99) 103 mg/dL (70-99) Lactic Acid Level 1.0 mmol/L (0.4-2.0) Calcium Level 9.2 mg/dL (8.5-10.1) 8.4 mg/dL (8.5-10.1) Magnesium Level 2.1 mg/dL (1.8-2.4) Total Bilirubin 0.4 mg/dL (0.2-1.0) 0.5 mg/dL (0.2-1.0) Aspartate Amino Transf (AST/SGOT) 17 U/L (15-37) 42 U/L (15-37) Alanine Aminotransferase (ALT/SGPT) 25 U/L (14-59) 48 U/L (14-59) Alkaline Phosphatase 84 U/L (46-116) 76 U/L (46-116) Creatine Kinase 49 U/L (26-192) Creatine Kinase MB (Mass) 0.5 ng/mL (0.0-3.6) Creatine Kinase MB Relative Index % (0-4) Troponin I Quantitative < 0.017 ng/mL (0.000-0.055) Total Protein 6.9 g/dL (6.4-8.2) 6.2 g/dL (6.4-8.2) Albumin 3.7 g/dL (3.4-5.0) 2.9 g/dL (3.4-5.0) Albumin/Globulin Ratio 1.2 (1.0-1.7) 0.9 (1.0-1.7) Lipase 89 U/L (73-393) Urine Collection Type Unknown Urine Color Yellow Urine Clarity Clear Urine pH 7.5 Urine Specific [place] 1.010 Urine Protein Negative mg/dL (NEG-TRACE) Urine Glucose (UA) Negative mg/dL (NEG) Urine Ketones (Stick) Negative mg/dL (NEG) Urine Blood Negative (NEG) Urine Nitrite Negative (NEG) Urine Bilirubin Negative (NEG) Urine Urobilinogen Dipstick 1.0 mg/dL (0.2 mg/dL) Urine Leukocyte Esterase Negative (NEG) Urine RBC 0 /HPF (0-2) Urine WBC Occ /HPF (0-4) Urine Squamous Epithelial Cells Few /LPF Urine Bacteria 0 /HPF (0-FEW) Urine Mucus Slight /LPF Laboratory Tests Test 02/09/19 18:25 02/10/19 06:40 Urine Collection Type Unknown Urine Color Yellow Urine Clarity Clear Urine pH 7.5 Urine Specific [place] 1.010 Urine Protein Negative mg/dL (NEG-TRACE) Urine Glucose (UA) Negative mg/dL (NEG) Urine Ketones (Stick) Negative mg/dL (NEG) Urine Blood Negative (NEG) Urine Nitrite Negative (NEG) Urine Bilirubin Negative (NEG) Urine Urobilinogen Dipstick 1.0 mg/dL (0.2 mg/dL) Urine Leukocyte Esterase Negative (NEG) Urine RBC 0 /HPF (0-2) Urine WBC Occ /HPF (0-4) Urine Squamous Epithelial Cells Few /LPF Urine Bacteria 0 /HPF (0-FEW) Urine Mucus Slight /LPF White Blood Count 12.1 x10^3/uL (4.0-11.0) Red Blood Count 4.04 x10^6/uL (3.50-5.40) Hemoglobin 13.0 g/dL (12.0-15.5) Hematocrit 39.1 % (36.0-47.0) Mean Corpuscular Volume 97 fL (79-100) Mean Corpuscular Hemoglobin 32 pg (25-35) Mean Corpuscular Hemoglobin Concent 33 g/dL (31-37) Red Cell Distribution Width 13.6 % (11.5-14.5) Platelet Count 250 x10^3/uL (140-400) Neutrophils (%) (Auto) 79 % (31-73) Lymphocytes (%) (Auto) 15 % (24-48) Monocytes (%) (Auto) 5 % (0-9) Eosinophils (%) (Auto) 0 % (0-3) Basophils (%) (Auto) 0 % (0-3) Neutrophils # (Auto) 9.5 x10^3/uL (1.8-7.7) Lymphocytes # (Auto) 1.8 x10^3/uL (1.0-4.8) Monocytes # (Auto) 0.6 x10^3/uL (0.0-1.1) Eosinophils # (Auto) 0.0 x10^3/uL (0.0-0.7) Basophils # (Auto) 0.0 x10^3/uL (0.0-0.2) Sodium Level 140 mmol/L (136-145) Potassium Level 4.2 mmol/L (3.5-5.1) Chloride Level 106 mmol/L (98-107) Carbon Dioxide Level 28 mmol/L (21-32) Anion Gap 6 (6-14) Blood Urea Nitrogen 8 mg/dL (7-20) Creatinine 0.8 mg/dL (0.6-1.0) Estimated GFR (Cockcroft-Gault) 75.3 BUN/Creatinine Ratio 10 (6-20) Glucose Level 103 mg/dL (70-99) Calcium Level 8.4 mg/dL (8.5-10.1) Total Bilirubin 0.5 mg/dL (0.2-1.0) Aspartate Amino Transf (AST/SGOT) 42 U/L (15-37) Alanine Aminotransferase (ALT/SGPT) 48 U/L (14-59) Alkaline Phosphatase 76 U/L (46-116) Total Protein 6.2 g/dL (6.4-8.2) Albumin 2.9 g/dL (3.4-5.0) Albumin/Globulin Ratio 0.9 (1.0-1.7) Assessment/Plan s/p jack ok to dc home after lunch if tolerates script on chart BELINDA MONZON MD 02/10/19 1103: SURGICAL PROGRESS NOTE Assessment/Plan Agree with above CARLA BIRMINGHAM APRN Feb 10, 2019 09:40 BELINDA MONZON MD Feb 10, 2019 11:03
--- NOTE | 2019-02-10 10:58 | PDOC ---
PROGRESS NOTES History of Present Illness History of Present Illness VTE Prophylaxis Ordered VTE Prophylaxis Devices: Yes VTE Pharmacological Prophylaxi: Yes Assessment/Plan Assessment/Plan discharge dx acute cholecystitis Enlarged liver with fatty infiltration. Enlarged gallbladder with cholelithiasis with positive Vance sign and gallbladder wall thickening consistent with acute cholecystitis. morbid obesity plan admit surgery FOLLOWING npo iv fluid support iv protonix dvt prophylaxis IV ANTIBIOTICS 28 min pt exam d/c planning , chart review, > 50% of time spent with exam, chart review, pt care coordination Operative Note 02/09 Operative Note Operative Note: Preoperative Diagnosis: Acute cholecystitis Postoperative Diagnosis: Same Procedure: Laparoscopic cholecystectomy with intraoperative cholangiogram Surgeons: [employer] Installer: Myles SOLIS Anesthesia: Gen. Estimated Blood Loss: 10 mL Specimen: Gallbladder to pathology Drains: None Complications: None Vitals Vitals Vital Signs Date Time Temp Pulse Resp B/P (MAP) Pulse Ox O2 Delivery O2 Flow Rate FiO2 02/10/19 08:36 94 Room Air 02/10/19 07:00 98.4 65 16 123/82 (96) 98.4 02/09/19 18:04 2.0 Physical Exam General: Alert, Oriented X3, Cooperative, No acute distress Heart: Regular rate, Normal S1, Normal S2, No murmurs Lungs: Clear Abdomen: Normal bowel sounds, Soft, Other (incisional TTP, lap dressings dry) Extremities: No cyanosis, No edema Skin: No rashes, No breakdown Labs LABS Laboratory Tests Test 02/09/19 18:25 02/10/19 06:40 Urine Collection Type Unknown Urine Color Yellow Urine Clarity Clear Urine pH 7.5 Urine Specific [place] 1.010 Urine Protein Negative mg/dL (NEG-TRACE) Urine Glucose (UA) Negative mg/dL (NEG) Urine Ketones (Stick) Negative mg/dL (NEG) Urine Blood Negative (NEG) Urine Nitrite Negative (NEG) Urine Bilirubin Negative (NEG) Urine Urobilinogen Dipstick 1.0 mg/dL (0.2 mg/dL) Urine Leukocyte Esterase Negative (NEG) Urine RBC 0 /HPF (0-2) Urine WBC Occ /HPF (0-4) Urine Squamous Epithelial Cells Few /LPF Urine Bacteria 0 /HPF (0-FEW) Urine Mucus Slight /LPF White Blood Count 12.1 x10^3/uL (4.0-11.0) Red Blood Count 4.04 x10^6/uL (3.50-5.40) Hemoglobin 13.0 g/dL (12.0-15.5) Hematocrit 39.1 % (36.0-47.0) Mean Corpuscular Volume 97 fL (79-100) Mean Corpuscular Hemoglobin 32 pg (25-35) Mean Corpuscular Hemoglobin Concent 33 g/dL (31-37) Red Cell Distribution Width 13.6 % (11.5-14.5) Platelet Count 250 x10^3/uL (140-400) Neutrophils (%) (Auto) 79 % (31-73) Lymphocytes (%) (Auto) 15 % (24-48) Monocytes (%) (Auto) 5 % (0-9) Eosinophils (%) (Auto) 0 % (0-3) Basophils (%) (Auto) 0 % (0-3) Neutrophils # (Auto) 9.5 x10^3/uL (1.8-7.7) Lymphocytes # (Auto) 1.8 x10^3/uL (1.0-4.8) Monocytes # (Auto) 0.6 x10^3/uL (0.0-1.1) Eosinophils # (Auto) 0.0 x10^3/uL (0.0-0.7) Basophils # (Auto) 0.0 x10^3/uL (0.0-0.2) Sodium Level 140 mmol/L (136-145) Potassium Level 4.2 mmol/L (3.5-5.1) Chloride Level 106 mmol/L (98-107) Carbon Dioxide Level 28 mmol/L (21-32) Anion Gap 6 (6-14) Blood Urea Nitrogen 8 mg/dL (7-20) Creatinine 0.8 mg/dL (0.6-1.0) Estimated GFR (Cockcroft-Gault) 75.3 BUN/Creatinine Ratio 10 (6-20) Glucose Level 103 mg/dL (70-99) Calcium Level 8.4 mg/dL (8.5-10.1) Total Bilirubin 0.5 mg/dL (0.2-1.0) Aspartate Amino Transf (AST/SGOT) 42 U/L (15-37) Alanine Aminotransferase (ALT/SGPT) 48 U/L (14-59) Alkaline Phosphatase 76 U/L (46-116) Total Protein 6.2 g/dL (6.4-8.2) Albumin 2.9 g/dL (3.4-5.0) Albumin/Globulin Ratio 0.9 (1.0-1.7) Comment Review of Relevant I have reviewed the following items reina (where applicable) has been applied. Labs Laboratory Tests Test 02/09/19 02:40 02/09/19 18:25 02/10/19 06:40 White Blood Count 14.0 x10^3/uL (4.0-11.0) 12.1 x10^3/uL (4.0-11.0) Red Blood Count 4.29 x10^6/uL (3.50-5.40) 4.04 x10^6/uL (3.50-5.40) Hemoglobin 14.0 g/dL (12.0-15.5) 13.0 g/dL (12.0-15.5) Hematocrit 41.5 % (36.0-47.0) 39.1 % (36.0-47.0) Mean Corpuscular Volume 97 fL (79-100) 97 fL (79-100) Mean Corpuscular Hemoglobin 33 pg (25-35) 32 pg (25-35) Mean Corpuscular Hemoglobin Concent 34 g/dL (31-37) 33 g/dL (31-37) Red Cell Distribution Width 13.8 % (11.5-14.5) 13.6 % (11.5-14.5) Platelet Count 295 x10^3/uL (140-400) 250 x10^3/uL (140-400) Neutrophils (%) (Auto) 74 % (31-73) 79 % (31-73) Lymphocytes (%) (Auto) 19 % (24-48) 15 % (24-48) Monocytes (%) (Auto) 6 % (0-9) 5 % (0-9) Eosinophils (%) (Auto) 1 % (0-3) 0 % (0-3) Basophils (%) (Auto) 1 % (0-3) 0 % (0-3) Neutrophils # (Auto) 10.3 x10^3/uL (1.8-7.7) 9.5 x10^3/uL (1.8-7.7) Lymphocytes # (Auto) 2.6 x10^3/uL (1.0-4.8) 1.8 x10^3/uL (1.0-4.8) Monocytes # (Auto) 0.9 x10^3/uL (0.0-1.1) 0.6 x10^3/uL (0.0-1.1) Eosinophils # (Auto) 0.1 x10^3/uL (0.0-0.7) 0.0 x10^3/uL (0.0-0.7) Basophils # (Auto) 0.1 x10^3/uL (0.0-0.2) 0.0 x10^3/uL (0.0-0.2) Prothrombin Time 12.1 SEC (11.7-14.0) Prothromb Time International Ratio 0.9 (0.8-1.1) Activated Partial Thromboplast Time 30 SEC (24-38) Sodium Level 143 mmol/L (136-145) 140 mmol/L (136-145) Potassium Level 4.1 mmol/L (3.5-5.1) 4.2 mmol/L (3.5-5.1) Chloride Level 104 mmol/L (98-107) 106 mmol/L (98-107) Carbon Dioxide Level 32 mmol/L (21-32) 28 mmol/L (21-32) Anion Gap 7 (6-14) 6 (6-14) Blood Urea Nitrogen 12 mg/dL (7-20) 8 mg/dL (7-20) Creatinine 0.9 mg/dL (0.6-1.0) 0.8 mg/dL (0.6-1.0) Estimated GFR (Cockcroft-Gault) 65.8 75.3 BUN/Creatinine Ratio 13 (6-20) 10 (6-20) Glucose Level 119 mg/dL (70-99) 103 mg/dL (70-99) Lactic Acid Level 1.0 mmol/L (0.4-2.0) Calcium Level 9.2 mg/dL (8.5-10.1) 8.4 mg/dL (8.5-10.1) Magnesium Level 2.1 mg/dL (1.8-2.4) Total Bilirubin 0.4 mg/dL (0.2-1.0) 0.5 mg/dL (0.2-1.0) Aspartate Amino Transf (AST/SGOT) 17 U/L (15-37) 42 U/L (15-37) Alanine Aminotransferase (ALT/SGPT) 25 U/L (14-59) 48 U/L (14-59) Alkaline Phosphatase 84 U/L (46-116) 76 U/L (46-116) Creatine Kinase 49 U/L (26-192) Creatine Kinase MB (Mass) 0.5 ng/mL (0.0-3.6) Creatine Kinase MB Relative Index % (0-4) Troponin I Quantitative < 0.017 ng/mL (0.000-0.055) Total Protein 6.9 g/dL (6.4-8.2) 6.2 g/dL (6.4-8.2) Albumin 3.7 g/dL (3.4-5.0) 2.9 g/dL (3.4-5.0) Albumin/Globulin Ratio 1.2 (1.0-1.7) 0.9 (1.0-1.7) Lipase 89 U/L (73-393) Urine Collection Type Unknown Urine Color Yellow Urine Clarity Clear Urine pH 7.5 Urine Specific [place] 1.010 Urine Protein Negative mg/dL (NEG-TRACE) Urine Glucose (UA) Negative mg/dL (NEG) Urine Ketones (Stick) Negative mg/dL (NEG) Urine Blood Negative (NEG) Urine Nitrite Negative (NEG) Urine Bilirubin Negative (NEG) Urine Urobilinogen Dipstick 1.0 mg/dL (0.2 mg/dL) Urine Leukocyte Esterase Negative (NEG) Urine RBC 0 /HPF (0-2) Urine WBC Occ /HPF (0-4) Urine Squamous Epithelial Cells Few /LPF Urine Bacteria 0 /HPF (0-FEW) Urine Mucus Slight /LPF Laboratory Tests Test 02/09/19 18:25 02/10/19 06:40 Urine Collection Type Unknown Urine Color Yellow Urine Clarity Clear Urine pH 7.5 Urine Specific [place] 1.010 Urine Protein Negative mg/dL (NEG-TRACE) Urine Glucose (UA) Negative mg/dL (NEG) Urine Ketones (Stick) Negative mg/dL (NEG) Urine Blood Negative (NEG) Urine Nitrite Negative (NEG) Urine Bilirubin Negative (NEG) Urine Urobilinogen Dipstick 1.0 mg/dL (0.2 mg/dL) Urine Leukocyte Esterase Negative (NEG) Urine RBC 0 /HPF (0-2) Urine WBC Occ /HPF (0-4) Urine Squamous Epithelial Cells Few /LPF Urine Bacteria 0 /HPF (0-FEW) Urine Mucus Slight /LPF White Blood Count 12.1 x10^3/uL (4.0-11.0) Red Blood Count 4.04 x10^6/uL (3.50-5.40) Hemoglobin 13.0 g/dL (12.0-15.5) Hematocrit 39.1 % (36.0-47.0) Mean Corpuscular Volume 97 fL (79-100) Mean Corpuscular Hemoglobin 32 pg (25-35) Mean Corpuscular Hemoglobin Concent 33 g/dL (31-37) Red Cell Distribution Width 13.6 % (11.5-14.5) Platelet Count 250 x10^3/uL (140-400) Neutrophils (%) (Auto) 79 % (31-73) Lymphocytes (%) (Auto) 15 % (24-48) Monocytes (%) (Auto) 5 % (0-9) Eosinophils (%) (Auto) 0 % (0-3) Basophils (%) (Auto) 0 % (0-3) Neutrophils # (Auto) 9.5 x10^3/uL (1.8-7.7) Lymphocytes # (Auto) 1.8 x10^3/uL (1.0-4.8) Monocytes # (Auto) 0.6 x10^3/uL (0.0-1.1) Eosinophils # (Auto) 0.0 x10^3/uL (0.0-0.7) Basophils # (Auto) 0.0 x10^3/uL (0.0-0.2) Sodium Level 140 mmol/L (136-145) Potassium Level 4.2 mmol/L (3.5-5.1) Chloride Level 106 mmol/L (98-107) Carbon Dioxide Level 28 mmol/L (21-32) Anion Gap 6 (6-14) Blood Urea Nitrogen 8 mg/dL (7-20) Creatinine 0.8 mg/dL (0.6-1.0) Estimated GFR (Cockcroft-Gault) 75.3 BUN/Creatinine Ratio 10 (6-20) Glucose Level 103 mg/dL (70-99) Calcium Level 8.4 mg/dL (8.5-10.1) Total Bilirubin 0.5 mg/dL (0.2-1.0) Aspartate Amino Transf (AST/SGOT) 42 U/L (15-37) Alanine Aminotransferase (ALT/SGPT) 48 U/L (14-59) Alkaline Phosphatase 76 U/L (46-116) Total Protein 6.2 g/dL (6.4-8.2) Albumin 2.9 g/dL (3.4-5.0) Albumin/Globulin Ratio 0.9 (1.0-1.7) Medications Current Medications Ondansetron HCl (Zofran) 4 mg 1X ONCE IV Last administered on 02/09/19at 03:12; Start 02/09/19 at 03:15; Stop 02/09/19 at 03:16; Status DC Famotidine (Pepcid Vial) 20 mg 1X ONCE IVP Last administered on 02/09/19at 03:12; Start 02/09/19 at 03:15; Stop 02/09/19 at 03:16; Status DC Ketorolac Tromethamine (Toradol 15mg Vial) 15 mg 1X ONCE IV Last administered on 02/09/19at 03:12; Start 02/09/19 at 03:15; Stop 02/09/19 at 03:16; Status DC Sodium Chloride 1,000 ml @ 1,000 mls/hr 1X ONCE IV Last administered on 02/09/19at 03:12; Start 02/09/19 at 03:15; Stop 02/09/19 at 04:14; Status DC Fentanyl Citrate (Fentanyl 2ml Vial) 50 mcg 1X ONCE IV Last administered on 02/09/19at 03:32; Start 02/09/19 at 03:30; Stop 02/09/19 at 03:53; Status DC Morphine Sulfate (Morphine Sulfate) 5 mg 1X ONCE IV Last administered on 02/09/19at 04:20; Start 02/09/19 at 04:15; Stop 02/09/19 at 04:16; Status DC Ondansetron HCl (Zofran) 4 mg 1X ONCE IV Last administered on 02/09/19at 04:20; Start 02/09/19 at 04:15; Stop 02/09/19 at 04:16; Status DC Ondansetron HCl (Zofran) 4 mg PRN Q8HRS PRN IV NAUSEA/VOMITING; Start 02/09/19 at 04:15; Stop 02/10/19 at 04:14; Status DC Morphine Sulfate (Morphine Sulfate) 4 mg PRN Q4HRS PRN IV PAIN Last administered on 02/09/19at 22:48; Start 02/09/19 at 04:15 Sodium Chloride 1,000 ml @ 125 mls/hr 1X ONCE IV Last administered on 02/09/19at 05:37; Start 02/09/19 at 04:15; Stop 02/09/19 at 12:14; Status DC Piperacillin Sod/ Tazobactam Sod 3.375 gm/Sodium Chloride 50 ml @ 100 mls/hr 1X ONCE IV Last administered on 02/09/19at 05:37; Start 02/09/19 at 04:30; Stop 02/09/19 at 04:59; Status DC Ondansetron HCl (Zofran) 4 mg PRN Q6HRS PRN IV NAUSEA/VOMITING; Start 02/09/19 at 08:30; Stop 02/09/19 at 16:13; Status DC Fentanyl Citrate (Fentanyl 2ml Vial) 25 mcg PRN Q5MIN PRN IV MILD PAIN 1-3; Start 02/09/19 at 08:30; Stop 02/09/19 at 16:13; Status DC Fentanyl Citrate (Fentanyl 2ml Vial) 50 mcg PRN Q5MIN PRN IV MODERATE TO SEVERE PAIN Last administered on 02/09/19at 15:52; Start 02/09/19 at 08:30; Stop 02/09/19 at 16:13; Status DC Morphine Sulfate (Morphine Sulfate) 1 mg PRN Q10MIN PRN IV SEVERE PAIN 7-10; Start 02/09/19 at 08:30; Stop 02/09/19 at 16:13; Status DC Ringer's Solution 1,000 ml @ 30 mls/hr Q24H IV ; Start 02/09/19 at 08:29; Stop 02/09/19 at 16:13; Status DC Hydromorphone HCl (Dilaudid) 0.5 mg PRN Q10MIN PRN IV SEV PAIN, Second choice; Start 02/09/19 at 08:30; Stop 02/09/19 at 16:13; Status DC Prochlorperazine Edisylate (Compazine) 5 mg PACU PRN PRN IV NAUSEA, MRX1; Start 02/09/19 at 08:30; Stop 02/09/19 at 16:13; Status DC Ondansetron HCl (Zofran) 4 mg STK-MED ONCE .ROUTE ; Start 02/09/19 at 09:18; Stop 02/09/19 at 09:18; Status DC Propofol 20 ml @ As Directed STK-MED ONCE IV ; Start 02/09/19 at 09:18; Stop 02/09/19 at 09:18; Status DC Lidocaine HCl (Lidocaine Pf 2% Vial) 5 ml STK-MED ONCE .ROUTE ; Start 02/09/19 at 09:18; Stop 02/09/19 at 09:18; Status DC Dexamethasone Sodium Phosphate (Decadron) 4 mg STK-MED ONCE .ROUTE ; Start 02/09/19 at 09:18; Stop 02/09/19 at 09:18; Status DC Midazolam HCl (Versed) 2 mg STK-MED ONCE .ROUTE ; Start 02/09/19 at 09:18; Stop 02/09/19 at 09:18; Status DC Fentanyl Citrate (Fentanyl 2ml Vial) 100 mcg STK-MED ONCE .ROUTE ; Start 02/09/19 at 09:18; Stop 02/09/19 at 09:18; Status DC Rocuronium [place] (Zemuron) 50 mg STK-MED ONCE .ROUTE ; Start 02/09/19 at 09:18; Stop 02/09/19 at 09:18; Status DC Iohexol (Omnipaque 300 Mg/ml) 50 ml STK-MED ONCE .ROUTE Last administered on 02/09/19at 14:18; Start 02/09/19 at 13:05; Stop 02/09/19 at 13:05; Status DC Cellulose (Surgicel Hemostat 4x8) 1 each STK-MED ONCE .ROUTE Last administered on 02/09/19at 14:42; Start 02/09/19 at 13:05; Stop 02/09/19 at 13:05; Status DC Bupivacaine HCl (Sensorcaine Mpf 0.5%) 30 ml STK-MED ONCE .ROUTE Last administ ered on 02/09/19at 14:42; Start 02/09/19 at 13:05; Stop 02/09/19 at 13:06; Status DC Pantoprazole Sodium (PROTONIX VIAL for IV PUSH) 40 mg DAILYAC IVP Last administered on 02/10/19at 07:47; Start 02/10/19 at 07:30 Enoxaparin Sodium (Lovenox 40mg Syringe) 40 mg Q24H SQ Last administered on 02/09/19at 21:07; Start 02/09/19 at 21:00 Piperacillin Sod/ Tazobactam Sod 3.375 gm/Sodium Chloride 50 ml @ 100 mls/hr 1X ONCE IV ; Start 02/09/19 at 13:45; Stop 02/09/19 at 13:43; Status DC Piperacillin Sod/ Tazobactam Sod 3.375 gm/Dextrose 50 ml @ 100 mls/hr 1X ONCE IV Last administered on 02/09/19at 14:01; Start 02/09/19 at 13:45; Stop 02/09/19 at 14:18; Status DC Glycopyrrolate (Robinul) 1 mg STK-MED ONCE .ROUTE ; Start 02/09/19 at 14:15; Stop 02/09/19 at 14:15; Status DC Neostigmine Methylsulfate (Neostigmine Methylsulfate) 5 mg STK-MED ONCE .ROUTE ; Start 02/09/19 at 14:15; Stop 02/09/19 at 14:15; Status DC Sevoflurane (Ultane) 60 ml STK-MED ONCE IH ; Start 02/09/19 at 14:24; Stop 02/09/19 at 14:24; Status DC Oxycodone/ Acetaminophen (Percocet 5/325) 1 tab PRN Q4HRS PRN PO MILD PAIN 1-3 Last administered on 02/09/19at 19:22; Start 02/09/19 at 15:00 Oxycodone/ Acetaminophen (Percocet 5/325) 1 tab PRN Q4HRS PRN PO MODERATE PAIN, SEVERE PAIN; Start 02/09/19 at 15:00; Stop 02/09/19 at 15:27; Status DC Oxycodone/ Acetaminophen (Percocet 5/325) 2 tab PRN Q4HRS PRN PO MODERATE PAIN, SEVERE PAIN Last administered on 02/10/19at 07:47; Start 02/09/19 at 15:27 Throat Lozenges (Cepacol Sore Throat Lozenge) 1 estefania PRN Q2HRS PRN PO SORE THROAT Last administered on 02/09/19at 21:07; Start 02/09/19 at 20:15 Vitals/I & O Vital Sign - Last 24 Hours 02/09/19 02/09/19 02/09/19 02/09/19 15:01 15:15 15:30 15:39 Temp 97.8 97.8 Pulse 94 97 96 Resp 14 12 16 12 B/P (MAP) 131/75 127/77 117/72 Pulse Ox 98 94 94 98 O2 Delivery Simple Mask Room Air Room Air Nasal Cannula O2 Flow Rate 8 2.0 02/09/19 02/09/19 02/09/19 02/09/19 15:45 15:52 16:00 16:15 Temp 98.3 98.3 Pulse 88 84 84 Resp 16 12 16 16 B/P (MAP) 122/75 119/84 (96) 124/76 (92) Pulse Ox 98 98 97 93 O2 Delivery Nasal Cannula Nasal Cannula Nasal Cannula Nasal Cannula O2 Flow Rate 2 2.0 2.0 2.0 02/09/19 02/09/19 02/09/19 02/09/19 16:30 16:45 17:27 17:48 Pulse 86 85 89 Resp 16 B/P (MAP) 119/83 (95) 126/90 (102) 134/86 (102) Pulse Ox 93 98 98 O2 Delivery Nasal Cannula Nasal Cannula Nasal Cannula O2 Flow Rate 2.0 2.0 2.0 02/09/19 02/09/19 02/09/19 02/09/19 17:59 18:04 19:00 19:22 Temp 98.1 98.1 Pulse 83 72 Resp 16 18 16 B/P (MAP) 115/82 (93) 119/75 (90) Pulse Ox 91 91 91 O2 Delivery Room Air Nasal Cannula Room Air Room Air O2 Flow Rate 2.0 02/09/19 02/09/19 02/09/19 02/09/19 20:00 21:07 22:48 23:00 Temp 98.0 98.0 Pulse 82 Resp 18 18 18 B/P (MAP) 115/72 (86) Pulse Ox 92 O2 Delivery Room Air Room Air Room Air Room Air 02/09/19 02/10/19 02/10/19 02/10/19 23:35 03:00 03:14 05:19 Temp 98.1 98.1 Pulse 72 Resp 18 18 18 16 B/P (MAP) 106/78 (87) Pulse Ox 92 O2 Delivery Room Air Room Air Room Air Room Air 02/10/19 02/10/19 02/10/19 02/10/19 07:00 07:22 07:47 08:36 Temp 98.4 98.4 Pulse 65 Resp 16 B/P (MAP) 123/82 (96) Pulse Ox 94 94 94 O2 Delivery Room Air Room Air Room Air Room Air Intake and Output 02/09/19 02/09/19 02/10/19 15:00 23:00 07:00 Intake Total 50 ml 1820 ml Output Total 410 ml Balance 50 ml 1410 ml KATELYN CODY MD Feb 10, 2019 10:58
[2019-02-10 11:00] VITALS: BP 113/66
--- NOTE | 2019-02-10 11:43 | PDOC3 ---
Discharge Summary Date of Admission: Feb 09, 2019 Date of Discharge: Feb 10, 2019 Follow-Up: By telephone Admitting Diagnosis comment: Assessment/Plan Assessment/Plan discharge dx acute cholecystitis Enlarged liver with fatty infiltration. Enlarged gallbladder with cholelithiasis with positive Vance sign and gallbladder wall thickening consistent with acute cholecystitis. morbid obesity plan admit d/c today if ale lunch well surgery FOLLOWING npo iv fluid support iv protonix dvt prophylaxis 28 min pt exam d/c planning , chart review, > 50% of time spent with exam, chart review, pt care coordination Operative Note 02/09 Operative Note Operative Note: Preoperative Diagnosis: Acute cholecystitis Postoperative Diagnosis: Same Procedure: Laparoscopic cholecystectomy with intraoperative cholangiogram Surgeons: [facility] Clinician: Myles SOLIS Anesthesia: Gen. Estimated Blood Loss: 10 mL Specimen: Gallbladder to pathology Drains: None Complications: None Vitals Vitals Vital Signs Date Time Temp Pulse Resp B/P (MAP) Pulse Ox O2 Delivery O2 Flow Rate FiO2 02/10/19 08:36 94 Room Air 02/10/19 07:00 98.4 65 16 123/82 (96) 98.4 02/09/19 18:04 2.0 Physical Exam General: Alert, Oriented X3, Cooperative, No acute distress Heart: Regular rate, Normal S1, Normal S2, No murmurs Lungs: Clear Abdomen: Normal bowel sounds, Soft, Other (incisional TTP, lap dressings dry) Extremities: No cyanosis, No edema Skin: No rashes, No breakdown Brief Hospital Course Ms. Enriquez is a 53 old [sex] who presented with [acute cholecystitis ] CONDITION AT DISCHARGE: Improved Discharge Medications Current Medications Ondansetron HCl (Zofran) 4 mg 1X ONCE IV Last administered on 02/09/19at 03:12; Start 02/09/19 at 03:15; Stop 02/09/19 at 03:16; Status DC Famotidine (Pepcid Vial) 20 mg 1X ONCE IVP Last administered on 02/09/19at 03:12; Start 02/09/19 at 03:15; Stop 02/09/19 at 03:16; Status DC Ketorolac Tromethamine (Toradol 15mg Vial) 15 mg 1X ONCE IV Last administered on 02/09/19at 03:12; Start 02/09/19 at 03:15; Stop 02/09/19 at 03:16; Status DC Sodium Chloride 1,000 ml @ 1,000 mls/hr 1X ONCE IV Last administered on 02/09/19at 03:12; Start 02/09/19 at 03:15; Stop 02/09/19 at 04:14; Status DC Fentanyl Citrate (Fentanyl 2ml Vial) 50 mcg 1X ONCE IV Last administered on 02/09/19at 03:32; Start 02/09/19 at 03:30; Stop 02/09/19 at 03:53; Status DC Morphine Sulfate (Morphine Sulfate) 5 mg 1X ONCE IV Last administered on 02/09/19at 04:20; Start 02/09/19 at 04:15; Stop 02/09/19 at 04:16; Status DC Ondansetron HCl (Zofran) 4 mg 1X ONCE IV Last administered on 02/09/19at 04:20; Start 02/09/19 at 04:15; Stop 02/09/19 at 04:16; Status DC Ondansetron HCl (Zofran) 4 mg PRN Q8HRS PRN IV NAUSEA/VOMITING; Start 02/09/19 at 04:15; Stop 02/10/19 at 04:14; Status DC Morphine Sulfate (Morphine Sulfate) 4 mg PRN Q4HRS PRN IV PAIN Last administered on 02/09/19at 22:48; Start 02/09/19 at 04:15 Sodium Chloride 1,000 ml @ 125 mls/hr 1X ONCE IV Last administered on 02/09/19at 05:37; Start 02/09/19 at 04:15; Stop 02/09/19 at 12:14; Status DC Piperacillin Sod/ Tazobactam Sod 3.375 gm/Sodium Chloride 50 ml @ 100 mls/hr 1X ONCE IV Last administered on 02/09/19at 05:37; Start 02/09/19 at 04:30; Stop 02/09/19 at 04:59; Status DC Ondansetron HCl (Zofran) 4 mg PRN Q6HRS PRN IV NAUSEA/VOMITING; Start 02/09/19 at 08:30; Stop 02/09/19 at 16:13; Status DC Fentanyl Citrate (Fentanyl 2ml Vial) 25 mcg PRN Q5MIN PRN IV MILD PAIN 1-3; Start 02/09/19 at 08:30; Stop 02/09/19 at 16:13; Status DC Fentanyl Citrate (Fentanyl 2ml Vial) 50 mcg PRN Q5MIN PRN IV MODERATE TO SEVERE PAIN Last administered on 02/09/19at 15:52; Start 02/09/19 at 08:30; Stop 02/09/19 at 16:13; Status DC Morphine Sulfate (Morphine Sulfate) 1 mg PRN Q10MIN PRN IV SEVERE PAIN 7-10; Start 02/09/19 at 08:30; Stop 02/09/19 at 16:13; Status DC Ringer's Solution 1,000 ml @ 30 mls/hr Q24H IV ; Start 02/09/19 at 08:29; Stop 02/09/19 at 16:13; Status DC Hydromorphone HCl (Dilaudid) 0.5 mg PRN Q10MIN PRN IV SEV PAIN, Second choice; Start 02/09/19 at 08:30; Stop 02/09/19 at 16:13; Status DC Prochlorperazine Edisylate (Compazine) 5 mg PACU PRN PRN IV NAUSEA, MRX1; Start 02/09/19 at 08:30; Stop 02/09/19 at 16:13; Status DC Ondansetron HCl (Zofran) 4 mg STK-MED ONCE .ROUTE ; Start 02/09/19 at 09:18; Stop 02/09/19 at 09:18; Status DC Propofol 20 ml @ As Directed STK-MED ONCE IV ; Start 02/09/19 at 09:18; Stop 02/09/19 at 09:18; Status DC Lidocaine HCl (Lidocaine Pf 2% Vial) 5 ml STK-MED ONCE .ROUTE ; Start 02/09/19 at 09:18; Stop 02/09/19 at 09:18; Status DC Dexamethasone Sodium Phosphate (Decadron) 4 mg STK-MED ONCE .ROUTE ; Start 02/09/19 at 09:18; Stop 02/09/19 at 09:18; Status DC Midazolam HCl (Versed) 2 mg STK-MED ONCE .ROUTE ; Start 02/09/19 at 09:18; Stop 02/09/19 at 09:18; Status DC Fentanyl Citrate (Fentanyl 2ml Vial) 100 mcg STK-MED ONCE .ROUTE ; Start 02/09/19 at 09:18; Stop 02/09/19 at 09:18; Status DC Rocuronium [place] (Zemuron) 50 mg STK-MED ONCE .ROUTE ; Start 02/09/19 at 09:18; Stop 02/09/19 at 09:18; Status DC Iohexol (Omnipaque 300 Mg/ml) 50 ml STK-MED ONCE .ROUTE Last administered on 02/09/19at 14:18; Start 02/09/19 at 13:05; Stop 02/09/19 at 13:05; Status DC Cellulose (Surgicel Hemostat 4x8) 1 each STK-MED ONCE .ROUTE Last administered on 02/09/19at 14:42; Start 02/09/19 at 13:05; Stop 02/09/19 at 13:05; Status DC Bupivacaine HCl (Sensorcaine Mpf 0.5%) 30 ml STK-MED ONCE .ROUTE Last administered on 02/09/19at 14:42; Start 02/09/19 at 13:05; Stop 02/09/19 at 13:06; Status DC Pantoprazole Sodium (PROTONIX VIAL for IV PUSH) 40 mg DAILYAC IVP Last admini stered on 02/10/19at 07:47; Start 02/10/19 at 07:30 Enoxaparin Sodium (Lovenox 40mg Syringe) 40 mg Q24H SQ Last administered on 02/09/19at 21:07; Start 02/09/19 at 21:00 Piperacillin Sod/ Tazobactam Sod 3.375 gm/Sodium Chloride 50 ml @ 100 mls/hr 1X ONCE IV ; Start 02/09/19 at 13:45; Stop 02/09/19 at 13:43; Status DC Piperacillin Sod/ Tazobactam Sod 3.375 gm/Dextrose 50 ml @ 100 mls/hr 1X ONCE IV Last administered on 02/09/19at 14:01; Start 02/09/19 at 13:45; Stop 02/09/19 at 14:18; Status DC Glycopyrrolate (Robinul) 1 mg STK-MED ONCE .ROUTE ; Start 02/09/19 at 14:15; Stop 02/09/19 at 14:15; Status DC Neostigmine Methylsulfate (Neostigmine Methylsulfate) 5 mg STK-MED ONCE .ROUTE ; Start 02/09/19 at 14:15; Stop 02/09/19 at 14:15; Status DC Sevoflurane (Ultane) 60 ml STK-MED ONCE IH ; Start 02/09/19 at 14:24; Stop 02/09/19 at 14:24; Status DC Oxycodone/ Acetaminophen (Percocet 5/325) 1 tab PRN Q4HRS PRN PO MILD PAIN 1-3 Last administered on 02/09/19at 19:22; Start 02/09/19 at 15:00 Oxycodone/ Acetaminophen (Percocet 5/325) 1 tab PRN Q4HRS PRN PO MODERATE PAIN, SEVERE PAIN; Start 02/09/19 at 15:00; Stop 02/09/19 at 15:27; Status DC Oxycodone/ Acetaminophen (Percocet 5/325) 2 tab PRN Q4HRS PRN PO MODERATE PAIN, SEVERE PAIN Last administered on 02/10/19at 07:47; Start 02/09/19 at 15:27 Throat Lozenges (Cepacol Sore Throat Lozenge) 1 estefania PRN Q2HRS PRN PO SORE THROAT Last administered on 02/09/19at 21:07; Start 02/09/19 at 20:15 Vital Signs Vital Signs Date Time Temp Pulse Resp B/P (MAP) Pulse Ox O2 Delivery O2 Flow Rate FiO2 02/10/19 11:00 98.3 79 16 113/66 (82) 93 Room Air 98.3 02/09/19 18:04 2.0 Labs Laboratory Tests Test 02/09/19 02:40 02/09/19 18:25 02/10/19 06:40 White Blood Count 14.0 x10^3/uL (4.0-11.0) 12.1 x10^3/uL (4.0-11.0) Red Blood Count 4.29 x10^6/uL (3.50-5.40) 4.04 x10^6/uL (3.50-5.40) Hemoglobin 14.0 g/dL (12.0-15.5) 13.0 g/dL (12.0-15.5) Hematocrit 41.5 % (36.0-47.0) 39.1 % (36.0-47.0) Mean Corpuscular Volume 97 fL (79-100) 97 fL (79-100) Mean Corpuscular Hemoglobin 33 pg (25-35) 32 pg (25-35) Mean Corpuscular Hemoglobin Concent 34 g/dL (31-37) 33 g/dL (31-37) Red Cell Distribution Width 13.8 % (11.5-14.5) 13.6 % (11.5-14.5) Platelet Count 295 x10^3/uL (140-400) 250 x10^3/uL (140-400) Neutrophils (%) (Auto) 74 % (31-73) 79 % (31-73) Lymphocytes (%) (Auto) 19 % (24-48) 15 % (24-48) Monocytes (%) (Auto) 6 % (0-9) 5 % (0-9) Eosinophils (%) (Auto) 1 % (0-3) 0 % (0-3) Basophils (%) (Auto) 1 % (0-3) 0 % (0-3) Neutrophils # (Auto) 10.3 x10^3/uL (1.8-7.7) 9.5 x10^3/uL (1.8-7.7) Lymphocytes # (Auto) 2.6 x10^3/uL (1.0-4.8) 1.8 x10^3/uL (1.0-4.8) Monocytes # (Auto) 0.9 x10^3/uL (0.0-1.1) 0.6 x10^3/uL (0.0-1.1) Eosinophils # (Auto) 0.1 x10^3/uL (0.0-0.7) 0.0 x10^3/uL (0.0-0.7) Basophils # (Auto) 0.1 x10^3/uL (0.0-0.2) 0.0 x10^3/uL (0.0-0.2) Prothrombin Time 12.1 SEC (11.7-14.0) Prothromb Time International Ratio 0.9 (0.8-1.1) Activated Partial Thromboplast Time 30 SEC (24-38) Sodium Level 143 mmol/L (136-145) 140 mmol/L (136-145) Potassium Level 4.1 mmol/L (3.5-5.1) 4.2 mmol/L (3.5-5.1) Chloride Level 104 mmol/L (98-107) 106 mmol/L (98-107) Carbon Dioxide Level 32 mmol/L (21-32) 28 mmol/L (21-32) Anion Gap 7 (6-14) 6 (6-14) Blood Urea Nitrogen 12 mg/dL (7-20) 8 mg/dL (7-20) Creatinine 0.9 mg/dL (0.6-1.0) 0.8 mg/dL (0.6-1.0) Estimated GFR (Cockcroft-Gault) 65.8 75.3 BUN/Creatinine Ratio 13 (6-20) 10 (6-20) Glucose Level 119 mg/dL (70-99) 103 mg/dL (70-99) Lactic Acid Level 1.0 mmol/L (0.4-2.0) Calcium Level 9.2 mg/dL (8.5-10.1) 8.4 mg/dL (8.5-10.1) Magnesium Level 2.1 mg/dL (1.8-2.4) Total Bilirubin 0.4 mg/dL (0.2-1.0) 0.5 mg/dL (0.2-1.0) Aspartate Amino Transf (AST/SGOT) 17 U/L (15-37) 42 U/L (15-37) Alanine Aminotransferase (ALT/SGPT) 25 U/L (14-59) 48 U/L (14-59) Alkaline Phosphatase 84 U/L (46-116) 76 U/L (46-116) Creatine Kinase 49 U/L (26-192) Creatine Kinase MB (Mass) 0.5 ng/mL (0.0-3.6) Creatine Kinase MB Relative Index % (0-4) Troponin I Quantitative < 0.017 ng/mL (0.000-0.055) Total Protein 6.9 g/dL (6.4-8.2) 6.2 g/dL (6.4-8.2) Albumin 3.7 g/dL (3.4-5.0) 2.9 g/dL (3.4-5.0) Albumin/Globulin Ratio 1.2 (1.0-1.7) 0.9 (1.0-1.7) Lipase 89 U/L (73-393) Urine Collection Type Unknown Urine Color Yellow Urine Clarity Clear Urine pH 7.5 Urine Specific [place] 1.010 Urine Protein Negative mg/dL (NEG-TRACE) Urine Glucose (UA) Negative mg/dL (NEG) Urine Ketones (Stick) Negative mg/dL (NEG) Urine Blood Negative (NEG) Urine Nitrite Negative (NEG) Urine Bilirubin Negative (NEG) Urine Urobilinogen Dipstick 1.0 mg/dL (0.2 mg/dL) Urine Leukocyte Esterase Negative (NEG) Urine RBC 0 /HPF (0-2) Urine WBC Occ /HPF (0-4) Urine Squamous Epithelial Cells Few /LPF Urine Bacteria 0 /HPF (0-FEW) Urine Mucus Slight /LPF Laboratory Tests Test 02/09/19 18:25 02/10/19 06:40 Urine Collection Type Unknown Urine Color Yellow Urine Clarity Clear Urine pH 7.5 Urine Specific [place] 1.010 Urine Protein Negative mg/dL (NEG-TRACE) Urine Glucose (UA) Negative mg/dL (NEG) Urine Ketones (Stick) Negative mg/dL (NEG) Urine Blood Negative (NEG) Urine Nitrite Negative (NEG) Urine Bilirubin Negative (NEG) Urine Urobilinogen Dipstick 1.0 mg/dL (0.2 mg/dL) Urine Leukocyte Esterase Negative (NEG) Urine RBC 0 /HPF (0-2) Urine WBC Occ /HPF (0-4) Urine Squamous Epithelial Cells Few /LPF Urine Bacteria 0 /HPF (0-FEW) Urine Mucus Slight /LPF White Blood Count 12.1 x10^3/uL (4.0-11.0) Red Blood Count 4.04 x10^6/uL (3.50-5.40) Hemoglobin 13.0 g/dL (12.0-15.5) Hematocrit 39.1 % (36.0-47.0) Mean Corpuscular Volume 97 fL (79-100) Mean Corpuscular Hemoglobin 32 pg (25-35) Mean Corpuscular Hemoglobin Concent 33 g/dL (31-37) Red Cell Distribution Width 13.6 % (11.5-14.5) Platelet Count 250 x10^3/uL (140-400) Neutrophils (%) (Auto) 79 % (31-73) Lymphocytes (%) (Auto) 15 % (24-48) Monocytes (%) (Auto) 5 % (0-9) Eosinophils (%) (Auto) 0 % (0-3) Basophils (%) (Auto) 0 % (0-3) Neutrophils # (Auto) 9.5 x10^3/uL (1.8-7.7) Lymphocytes # (Auto) 1.8 x10^3/uL (1.0-4.8) Monocytes # (Auto) 0.6 x10^3/uL (0.0-1.1) Eosinophils # (Auto) 0.0 x10^3/uL (0.0-0.7) Basophils # (Auto) 0.0 x10^3/uL (0.0-0.2) Sodium Level 140 mmol/L (136-145) Potassium Level 4.2 mmol/L (3.5-5.1) Chloride Level 106 mmol/L (98-107) Carbon Dioxide Level 28 mmol/L (21-32) Anion Gap 6 (6-14) Blood Urea Nitrogen 8 mg/dL (7-20) Creatinine 0.8 mg/dL (0.6-1.0) Estimated GFR (Cockcroft-Gault) 75.3 BUN/Creatinine Ratio 10 (6-20) Glucose Level 103 mg/dL (70-99) Calcium Level 8.4 mg/dL (8.5-10.1) Total Bilirubin 0.5 mg/dL (0.2-1.0) Aspartate Amino Transf (AST/SGOT) 42 U/L (15-37) Alanine Aminotransferase (ALT/SGPT) 48 U/L (14-59) Alkaline Phosphatase 76 U/L (46-116) Total Protein 6.2 g/dL (6.4-8.2) Albumin 2.9 g/dL (3.4-5.0) Albumin/Globulin Ratio 0.9 (1.0-1.7) Allergies Allergies Coded Allergies Type Severity Reaction Last Updated Verified No Known Drug Allergies 02/09/19 No Disposition/Orders: D/C to Home Patient Instructions d/c planning 28 min KATELYN CODY MD Feb 10, 2019 11:43
[2019-02-10] MEDS ORDERED: OXYC1TAB15 PO (11:44)
--- NOTE | 2019-02-10 11:45 | DISCH ---
DISCHARGE INSTRUCTIONS Condition on Discharge Condition on Discharge: Stable Activity After Discharge Activity Instructions for Disc: Activity as tolerated, Avoid exertion Lifting Instructions after Dis: No heavy lifting, No pulling or pushing Driving Instructions after Dis: Do not drive Diet after Discharge Diet after Discharge: Low Fat Checks after Discharge Checks after discharge: Check blood press - daily Contacting the DR. after DC Call your doctor for: If your condition worsens KATELYN CODY MD Feb 10, 2019 11:45
--- NOTE | 2019-02-10 13:37 | NUR ---
Discharge Note: BREANA BROWN Discharge instructions and discharge home medications reviewed with Patient and a copy given. All questions have been answered and understanding verbalized. The following instructions and handouts were given: information about radha santiago post op instructions and information. Discontinued lines and drains: IV line in right AC removed, catheter tip intact. Patient discharged to home with self care with family member, wheelchair used for mobility to discharge vehicle.
--- NOTE | 2019-02-11 15:07 | PATHOLOGY ---
[facility] Accession Number: [id number] . 01 Material submitted: . gallbladder - GALLBLADDER . 01 Clinical history: . Cholecystitis . 02 Diagnosis: Gallbladder, laparoscopic cholecystectomy: - Cholelithiasis. - Chronic and acute cholecystitis with focally increased eosinophils. - Focal acute inflammation of gallbladder neck lymph node. (JPM:perla; 02/11/2019) QMS/02/11/2019 . 02 Comment: There is no evidence of malignancy. . 02 Electronically signed: . Cyril Lambert MD, Pathologist NPI- [id number] . 01 Gross description: . The specimen is received in formalin, labeled "Adele Enriquez, gallbladder", is a previously opened gallbladder measuring 10.8 cm in length and 4.0 cm in maximum diameter with a glistening, smooth and predominantly holliday serosa. A 0.7 x 0.5 x 0.2 cm soft lymph node is identified in the region of the gallbladder neck. The cystic duct region is impacted by calculi and is dilated. The gallbladder lumen contains scant bile and multiple oval to multifaceted yellow-holliday calculi measuring 6.7 x 6.0 x 1.5 cm in aggregate. The largest calculus is oval and measures 3.0 x 2.2 x 1.8 cm. The mucosa is holliday-brown to green focally denuded and with no cholesterolosis. The wall is 0.1 cm in average thickness. Representatively submitted in A1. (SWS; 02/10/2019) SHS/SHS . 02 Pathologist provided ICD-10: K80.12 . 02 CPT . 479736 Specimen Comment: A courtesy copy of this report has been sent to Specimen Comment: [phone], . Specimen Comment: Report sent to / DR LOU Performed at: 01 [facility] [address], [place], [place] [id number] MD Chidi Espinoza MD Phone: [phone] Performed at: 02 [facility] [address] [place], [place] [id number] MD Cyril Lambert MD Phone: [phone]
== END 2019-02-10 13:37 | disposition home or self-care (01) | DRG 417 ==
LOC: ER 02:33 → 4 NORTH 04:00
PROVIDERS: ADMIT Internal Medicine; ATTEND Internal Medicine
PROC: BF101ZZ Fluoroscopy of Bile Ducts using Low Osmolar Contrast (ICD-10-PCS; 2019-02-09)
PROC: 0FT44ZZ Resection of Gallbladder, Percutaneous Endoscopic Approach (ICD-10-PCS; principal; 2019-02-09 09:30)
DX: K80.00 Calculus of gallbladder with acute cholecystitis without obstruction (principal); R65.11 Systemic inflammatory response syndrome (SIRS) of non-infectious origin with acute organ dysfunction; K76.0 Fatty (change of) liver, not elsewhere classified; E66.01 Morbid (severe) obesity due to excess calories; K82.8 Other specified diseases of gallbladder; Z96.649 Presence of unspecified artificial hip joint; Z90.710 Acquired absence of both cervix and uterus; Z98.891 History of uterine scar from previous surgery; Z98.84 Bariatric surgery status; Z68.35 Body mass index [BMI] 35.0-35.9, adult; Z98.51 Tubal ligation status
CPT/HCPCS: 36415; 74300; 76705; 80053; 81001; 82553; 83605; 83690; 83735; 84484; 85025; 85610; 85730; 93005; A7015; C9113; J1100; J1650; J1885; J2001; J2250; J2270; J2405; J2543; J2704; J2710; J3010; J3490; J7030; J7120; Q9967; G0378